=== PATIENT | male | born 1960 | race Caucasian/White ===

== ENCOUNTER → 2019-11-14 | Outpatient (REF) | payer OTHER ==
[~2019-11-14] MED LIST: CALC600T60 PO; FLUO20CA19 PO; LISI10TA4 PO; MULTCAP PO
[2019-11-14 17:49] LABS: HEMATOCRIT 46.8 % (42.0-52.0); HEMOGLOBIN 15.9 g/dl (13.5-17.5); MEAN CORPUSCULAR HEMOGLOBIN 31.3 pg (27.0-33.0); MEAN CORPUSCULAR VOLUME 92.1 fl (80.0-96.0); PLATELET COUNT, AUTOMATED 214 10^3/uL (150-450); RED BLOOD COUNT 5.08 10^6/uL (4.30-6.10); WHITE BLOOD COUNT 6.2 10^3/uL (4.0-10.0)
[2019-11-14 18:10] LABS: ALBUMIN 3.3 GM/DL (3.2-5.2); ALT/SGPT 21 U/L (12-78); BILIRUBIN,TOTAL 0.5 MG/DL (0.2-1.0); BLOOD UREA NITROGEN 13 MG/DL (7-18); CALCIUM LEVEL 9.1 MG/DL (8.8-10.2); CARBON DIOXIDE LEVEL 30 MEQ/L (21-32); CHLORIDE LEVEL 107 MEQ/L (98-107); CREATININE FOR GFR 0.96 MG/DL (0.70-1.30); FREE T4 1.03 NG/DL (0.76-1.46); GLOMERULAR FILTRATION RATE > 60.0 (>49); GLUCOSE, FASTING 97 MG/DL (70-100); POTASSIUM SERUM 4.6 MEQ/L (3.5-5.1); SODIUM LEVEL 143 MEQ/L (136-145); THYROID STIMULATING HORMONE 0.965 uIU/ML (0.358-3.740); TOTAL PROTEIN 6.5 GM/DL (6.4-8.2)
== END ==
LOC: M SFHCADAM 10:53
PROVIDERS: ATTEND Family Medicine
DX: Z12.5 Encounter for screening for malignant neoplasm of prostate (principal); F41.8 Other specified anxiety disorders; I10 Essential (primary) hypertension
CPT/HCPCS: 80053; 84439; 84443; 85027; G0103

== ENCOUNTER 2019-11-17 08:22 | Day surgery (SDC) | payer BC, SELFPAY ==
[~2019-11-17] VITALS: Ht 175.3 cm; Wt 94.7 kg
[~2019-11-17 08:22] MED LIST changes: +NS 1,000 ML IV ONE; +PROPOFOL 200 MG/20 ML VIAL As Ordered ONE
--- NOTE | 2019-11-17 10:23 | ROOR ---
Patient Name: Ilir Sánchez Procedure Date: 11/17/2019 9:36 AM Date of : 1960 Age: 59 Room: [facility] Gender: Male Note Status: Finalized Procedure: Colonoscopy Indications: Screening for colorectal malignant neoplasm Providers: Jeff Howell MD Referring MD: Arturo Gutierrez MD Requesting Provider: Medicines: Monitored Anesthesia Care Complications: No immediate complications. Procedure: Pre-Anesthesia Assessment: - Prior to the procedure, a History and Physical was performed, and patient medications and allergies were reviewed. The patient is competent. The risks and benefits of the procedure and the sedation options and risks were discussed with the patient. All questions were answered and informed consent was obtained. Patient identification and proposed procedure were verified by the physician, the nurse and the anesthesiologist in the procedure room. Mental Status Examination: alert and oriented. Airway Examination: normal oropharyngeal airway and neck mobility. Respiratory Examination: clear to auscultation. CV Examination: normal. Prophylactic Antibiotics: The patient does not require prophylactic antibiotics. Prior Anticoagulants: The patient has taken no previous anticoagulant or antiplatelet agents. ASA Grade Assessment: II - A patient with mild systemic disease. After reviewing the risks and benefits, the patient was deemed in satisfactory condition to undergo the procedure. The anesthesia plan was to use monitored anesthesia care (MAC). Immediately prior to administration of medications, the patient was re-assessed for adequacy to receive sedatives. The heart rate, respiratory rate, oxygen saturations, blood pressure, adequacy of pulmonary ventilation, and response to care were monitored throughout the procedure. The physical status of the patient was re-assessed after the procedure. The Colonoscope was introduced through the anus and advanced to the terminal ileum, with identification of the appendiceal orifice and IC valve. The colonoscopy was performed without difficulty. The patient tolerated the procedure well. The quality of the bowel preparation was fair except the descending colon was poor. The terminal ileum, ileocecal valve, appendiceal orifice, and rectum were photographed. Scope insertion time was 3 minutes. Scope withdrawal time was 11 minutes. The total duration of the procedure was 14 minutes. Findings: The perianal and digital rectal examinations were normal. The terminal ileum appeared normal. Five sessile polyps were found in the transverse colon and cecum. The polyps were 4 to 10 mm in size. These polyps were removed with a cold snare. Resection and retrieval were complete. Verification of patient identification for the specimen was done by the physician and nurse using the patient's name, date and medical record number. Estimated blood loss was minimal. Multiple small and large-mouthed diverticula were found from sigmoid to descending colon. There was no evidence of diverticular bleeding. Non-bleeding external and internal hemorrhoids were found during retroflexion. The hemorrhoids were medium-sized. Impression: - The examined portion of the ileum was normal. - Five 4 to 10 mm polyps in the transverse colon and in the cecum, removed with a cold snare. Resected and retrieved. - Moderate diverticulosis from sigmoid to descending colon. There was no evidence of diverticular bleeding. - Non-bleeding external and internal hemorrhoids. Recommendation: - Patient has a contact number available for emergencies. The signs and symptoms of potential delayed complications were discussed with the patient. Return to normal activities tomorrow. Written discharge instructions were provided to the patient. - High fiber diet. - Continue present medications. - Await pathology results. - Repeat colonoscopy in 1 - 3 years because the bowel preparation was poor and for surveillance based on pathology results. - Telephone GI clinic for pathology results in 2 weeks. - Return to primary care physician. Jeff Howell MD Jeff Howell MD 11/17/2019 10:23:16 AM Electronically signed by Jeff Howell MD Number of Addenda: 0 Note Initiated On: 11/17/2019 9:36 AM Estimated Blood Loss: Estimated blood loss was minimal.
[2019-11-17 10:44] VITALS: BP 174/84
== END 2019-11-17 10:43 | disposition home or self-care (01) ==
LOC: M OPP 08:22
PROVIDERS: ATTEND Internal Medicine Gastroenterology
DX: Z12.11 Encounter for screening for malignant neoplasm of colon (principal); K64.8 Other hemorrhoids; D12.3 Benign neoplasm of transverse colon; D12.0 Benign neoplasm of cecum; K57.30 Diverticulosis of large intestine without perforation or abscess without bleeding; G47.30 Sleep apnea, unspecified; Z79.899 Other long term (current) drug therapy; Z98.84 Bariatric surgery status

== ENCOUNTER → 2019-11-22 | Outpatient (REF) | payer BC ==
[~2019-11-22] MED LIST changes: -NS 1,000 ML IV ONE; -PROPOFOL 200 MG/20 ML VIAL As Ordered ONE
[2019-11-22 13:14] LABS: CHOLESTEROL LEVEL 196 MG/DL (<200); CHOLESTEROL RISK RATIO 3.111 (<5); HDL CHOLESTEROL 63 MG/DL (>40); LDL CHOLESTEROL 106 MG/DL (<100); NON-HDL-C 133 MG/DL; RHEUMATOID FACTOR QUANT < 10.0 IU/ML (<15.0); TRIGLYCERIDES LEVEL 136 MG/DL (<150)
[2019-11-24 00:07] LABS: ANA (HEP2) Negative (.)
== END ==
LOC: M SFHCADAM 08:57
PROVIDERS: ATTEND Family Medicine
DX: E78.5 Hyperlipidemia, unspecified (principal); M15.9 Polyosteoarthritis, unspecified

== ENCOUNTER → 2020-02-01 | Outpatient (CLI) | payer BC ==
[~2020-02-01] MED LIST changes: -FLUO20CA19 PO; +FLUO20CA22 PO; +PROHANCE 279.3MG/ML 15ML VIAL (A9576) As Ordered ONE; +PROHANCE 279.3MG/ML 5ML VIAL (A9576) As Ordered ONE
--- NOTE | 2020-02-01 13:31 | REPVR ---
PROCEDURE INFORMATION: Exam: MR Head Without and With Contrast; Internal Auditory Canals Exam date and time: 02/01/2020 10:51 AM Age: 59 years old Clinical indication: Condition or disease; Other: Hearing loss; Patient HX: Kassy iacs; Additional info: Sensrl hearing loss TECHNIQUE: Imaging protocol: MR of the head without and with intravenous contrast. Exam focused on the internal auditory canals. 3D rendering: MIP and/or 3D reconstructed images were created by the technologist. Contrast material: PROHANCE; Contrast volume: 20 ml; Contrast route: IV; COMPARISON: No relevant prior studies available. FINDINGS: Brain: There is mild patchy increased T2 signal intensity within the bilateral cerebral periventricular white matter, consistent with chronic microvascular ischemic changes. There are few small focal areas of chronic ischemia in bilateral frontal, parietal and periatrial white matter. There is no abnormal diffusion weighted signal intensity to suggest an acute ischemic event. Examination of the posterior fossa demonstrates no significant abnormality. The seventh and eighth nerve complexes are normal in thickness and signal intensity. No discrete mass or abnormal enhancement is seen to suggest vestibular schwannoma or acoustic neuroma. No abnormal contrast enhancement is seen. Ventricles: The ventricular system is not dilated and is appropriate for the patient's age. Mastoid air cells: Unremarkable. No effusions. Internal auditory canals: Unremarkable. 7th and 8th cranial nerves are unremarkable. No abnormal masses. Bones/joints: Unremarkable. IMPRESSION: 1. No acute infarction, masses or hemorrhage is seen. No acute intracranial abnormality is identified. 2. Diffuse age-related cerebral atrophy and mild chronic microvascular white matter ischemic changes, without evidence of an acute intracranial abnormality. 3. The seventh and eighth nerve complexes are normal in thickness and signal intensity. No discrete mass or abnormal enhancement is seen to suggest vestibular schwannoma or acoustic neuroma. 4. No abnormal contrast enhancement is seen. Electronically signed by: Eric Marshall On 02/01/2020 13:31:21 PM
== END ==
LOC: M RAD 09:54
PROVIDERS: ATTEND Specialist
DX: H90.41 Sensorineural hearing loss, unilateral, right ear, with unrestricted hearing on the contralateral side (principal)
CPT/HCPCS: 70543; A9576

== ENCOUNTER → 2020-02-22 | Outpatient (CLI) | payer BC ==
[~2020-02-22] MED LIST changes: -PROHANCE 279.3MG/ML 15ML VIAL (A9576) As Ordered ONE; -PROHANCE 279.3MG/ML 5ML VIAL (A9576) As Ordered ONE
--- NOTE | 2020-02-22 12:17 | REP ---
LUMBAR SPINE: Five views. HISTORY: Low back pain. No comparison study. FINDINGS: There is a mild levoconvex lumbar scoliosis. Psoas margins are symmetric. Sacrum and SI joints are intact. Vertebral body heights are preserved. Alignment is normal. There is diffuse degenerative disc disease. Degenerative disc changes are most pronounced at L4-5 and L5-S1 where there is disc narrowing. Vacuum phenomenon is seen at the L5-S1 level. Discogenic spurring is noted at the other levels. There is no evidence of spondylolysis or spondylolisthesis. Facet hypertrophy and sclerosis are present bilaterally at L5-S1 and to a lesser extent at L4-5 and on the right at L3-4. IMPRESSION: Degenerative spondylosis changes. No acute bony abnormality. Electronically Signed by Osbaldo Haynes MD 02/22/2020 01:52 P
--- NOTE | 2020-02-22 12:19 | REP ---
LEFT HIP: Two views. HISTORY: Hip pain. FINDINGS: AP and frog-leg views of the left hip show a smooth rounded femoral head and intact hip joint space. There is a subcortical cyst at the anterior edge of the femoral neck. Periarticular soft tissues are unremarkable. There is minimal femoral acetabular spurring. IMPRESSION: Minimal spurring. No acute bony abnormality. Electronically Signed by Osbaldo Haynes MD 02/22/2020 01:52 P
== END ==
LOC: M ADAMS 10:49
PROVIDERS: ATTEND Family Medicine
DX: M25.552 Pain in left hip (principal)

== ENCOUNTER → 2020-06-20 | Outpatient (REF) | payer BC ==
[2020-08-26 14:44] LABS: PLATELET COUNT, AUTOMATED 232 10^3/uL (150-450)
[2020-08-26 14:45] LABS: INR 0.98; PARTIAL THROMBOPLASTIN TIME 26.9 SECONDS (24.2-38.5); PROTHROMBIN TIME 13.2 SECONDS (12.5-14.3)
== END ==
LOC: M LABDRWAD 12:04
PROVIDERS: ATTEND Physician Assistant
DX: M51.37 Other intervertebral disc degeneration, lumbosacral region (principal)

== ENCOUNTER → 2020-06-21 | Outpatient (REF) | payer BC ==
[2020-07-20 01:13] LABS: COLLAGEN EPINEPHRINE 122 SECONDS (74-162)
== END ==
LOC: M LABDRWAD 11:34
PROVIDERS: ATTEND Physician Assistant
DX: M51.37 Other intervertebral disc degeneration, lumbosacral region (principal)

== ENCOUNTER → 2020-07-31 | Outpatient (REF) | payer BC ==
[2020-07-31 18:57] LABS: PLATELET COUNT, AUTOMATED 222 10^3/uL (150-450)
[2020-07-31 19:10] LABS: INR 0.98; PARTIAL THROMBOPLASTIN TIME 27.6 SECONDS (25.0-38.4); PROTHROMBIN TIME 13.2 SECONDS (11.8-14.0)
== END ==
LOC: M LABDRWAD 17:46
PROVIDERS: ATTEND Physician Assistant
DX: M51.37 Other intervertebral disc degeneration, lumbosacral region (principal)

== ENCOUNTER → 2020-08-07 | Outpatient (CLI) | payer BC | LOC: M LABSMTC 10:16 | PROVIDERS: ATTEND Physical Medicine & Rehabilitation | DX: Z01.812 Encounter for preprocedural laboratory examination (principal); Z20.828 Contact with and (suspected) exposure to other viral communicable diseases ==

== ENCOUNTER → 2020-10-31 | Outpatient (REF) | payer BC ==
[2020-10-31 17:48] LABS: HEMATOCRIT 48.7 % (42.0-52.0); HEMOGLOBIN 16.3 g/dl (13.5-17.5); MEAN CORPUSCULAR HEMOGLOBIN 30.5 pg (27.0-33.0); MEAN CORPUSCULAR HGB CONC 33.5 g/dl (32.0-36.5); MEAN CORPUSCULAR VOLUME 91.2 fl (80.0-96.0); PLATELET COUNT, AUTOMATED 247 10^3/uL (150-450); RED BLOOD COUNT 5.34 10^6/uL (4.30-6.10); WHITE BLOOD COUNT 6.3 10^3/uL (4.0-10.0)
[2020-10-31 18:03] LABS: ALBUMIN 3.6 GM/DL (3.2-5.2); ALT/SGPT 22 U/L (12-78); BILIRUBIN,TOTAL 0.4 MG/DL (0.2-1.0); BLOOD UREA NITROGEN 18 MG/DL (7-18); CALCIUM LEVEL 9.1 MG/DL (8.8-10.2); CARBON DIOXIDE LEVEL 34 MEQ/L (21-32); CHLORIDE LEVEL 102 MEQ/L (98-107); CHOLESTEROL LEVEL 217 MG/DL (<200); CREATININE FOR GFR 0.98 MG/DL (0.70-1.30); FREE T4 1.01 NG/DL (0.76-1.46); GLOMERULAR FILTRATION RATE > 60.0 (>49); GLUCOSE, FASTING 93 MG/DL (70-100); HDL CHOLESTEROL 62 MG/DL (>40); LDL CHOLESTEROL 122 MG/DL (<100); NON-HDL-C 155 MG/DL; POTASSIUM SERUM 4.2 MEQ/L (3.5-5.1); SODIUM LEVEL 141 MEQ/L (136-145); THYROID STIMULATING HORMONE 0.765 uIU/ML (0.358-3.740); TOTAL PROTEIN 6.5 GM/DL (6.4-8.2); TRIGLYCERIDES LEVEL 163 MG/DL (<150)
== END ==
LOC: M SFHCADAM 14:52
PROVIDERS: ATTEND Family Medicine
DX: I10 Essential (primary) hypertension (principal); E78.5 Hyperlipidemia, unspecified; F41.8 Other specified anxiety disorders; Z86.010 Personal history of colon polyps; Z12.5 Encounter for screening for malignant neoplasm of prostate

== ENCOUNTER → 2020-12-28 | Outpatient (CLI) | payer BC ==
[~2020-12-28] MED LIST changes: +CENT1TAB PO; +CLON0.5T2 PO; +LISI10TA22 PO; -LISI10TA4 PO; +NEUR300C PO
== END ==
LOC: M LABSMTC 09:57
PROVIDERS: ATTEND Anesthesiology
DX: Z01.812 Encounter for preprocedural laboratory examination (principal); Z20.822 Contact with and (suspected) exposure to COVID-19

== ENCOUNTER 2021-01-02 07:58 | Day surgery (SDC) | payer BC ==
[~2021-01-02] VITALS: Ht 175.3 cm; Wt 96.2 kg
[~2021-01-02 07:58] MED LIST changes: +NS 1,000 ML IV ONE
--- OUTSIDE RECORDS SUMMARY | 2021-01-02 08:02 | CCD ---
Author Author [facility] Organization [facility] [facility] Address Unknown Phone Unavailable Care Team Providers Care Police [employer] Program Coordinator Name Role Phone Arturo Gutierrez Unavailable PROBLEMS Type Condition ICD9-CM Code [id number] Code Onset Dates Condition S tatus SNOMED Code Notes Problem Depression with anxiety F41.8 Active 54773099 6 Problem Generalized osteoarthrosis, involving multiple sites M15.9 Active 501723539 Problem Other chronic pain G89.29 Active 21688431 Problem Unspecified essential hypertension I10 Activ e 58425606 Problem Erectile disorder, generalized, mild F52.21 Act joshua 105427450 Problem History of adenomatous polyp of colon Z86.010 Ac tive 786657750 Problem Borderline hyperlipidemia E78.5 Active 200793 04 ALLERGIES No Known Allergies ENCOUNTERS from 1960 to 2020-11-12 Encounter Location Date Provider Diagnosis [address] [place] [address] 17 Oct, 2020 Byron Gutierrez Unspecified essential hypertension I10 ; Low back pain M54.5 ; Depression with anxiety F41.8 ; Erectile disorder, generalized, mild F52.21 ; Borderline hyperlipidemia E78.5 ; History of adenomatous polyp of colon Z86.010 ; Generalized osteoarthrosis, involving multiple sites M15.9 and Encounter for screening for malignant neoplasm of prostate Z12.5 IMMUNIZATIONS Vaccine Route Administration Date Status Influenza (18 yrs & older) Flublok IM Intramuscular Nov 22, 2019 Administered TDAP 0.5mL (Boostrix) IM Intramuscular May 25, 2019 Administe red SOCIAL HISTORY Tobacco Use: Social History Observation Description Date Details (start date - stop date) Never Smoker Sex Assigned At : Social History Observation Description Sex Assigned At Unknown Audit Question Answer Notes Total Score: 2 Interpretation: Alcohol Education Gnosticist: Question Answer Notes Gnosticist No tenriism beliefs that would impact health care. Drug and Alcohol Question Answer Notes Total Score: 0 Interpretation: No problems reported Tobacco Use: Question Answer Notes Are you a: never smoker REASON FOR REFERRAL No Information VITAL SIGNS No information MEDICATIONS Medication SIG (Take, Route, Frequency, Duration) Notes Start Da te End Date Status Multivital Active FLUoxetine HCl 20 MG 1 capsule Orally Once a day Active Sildenafil Citrate 100 MG 1 tablet as needed Orally Once a day f or 90 day(s) Not-Taking Calcium 600 MG 1 tablet with meals Orally Twice a day for 90 day(s) Active Meloxicam 15 MG 1 tablet Orally once daily as needed for 30 day( s) Nov, Active Clonazepam 0.5MG 1 tablet as needed for anxiety Orally Daily for 30 Active Lisinopril 10 MG 1 tablet Orally Once a day Active PROCEDURES No Information RESULTS REASON FOR VISIT Dec F/U MEDICAL (GENERAL) HISTORY Type Description Date Medical History HTN Medical History ED Medical History depression/anxiety--manifest s as vague chest pain--had stress tests etc in [place] ~ 2012 Medical History s/p sleeve gastrectomy-- lost 80#, regai rachel ~ 20# Medical History adenomatous colon polyps 11/2019 Medical History DDD L/S spine, L5-S1 radicul opathy non NCS/EMG at [facility] [place]; s/p epidurals NCPG 08/04 Surgical History gastric sleeve surgery for weight loss 1 12/01 Surgical History hernia Surgical History TURP (in [place]) 2016 Surgical History colonoscopy--adenomatous polyps 11/2019 Goals Section No Information Health Concerns No Information MEDICAL EQUIPMENT No Information MENTAL STATUS No Information FUNCTIONAL STATUS No Information ASSESSMENTS Encounter Date Diagnosis Assessment Notes Treatment Notes Treatm ent Clinical Notes Oct, Unspecified essential hypertension (ICD-10 - I10 ) Oct, Low back pain (ICD-10 - M54.5) Oct, Depression with anxiety (ICD-10 - F41.8) Oct, Erectile disorder, generalized, mild (ICD-10 - F 52.21) Oct, Borderline hyperlipidemia (ICD-10 - E78.5) Oct, History of adenomatous polyp of colon (ICD-10 - Z86.010) [email or web address] Oct, Generalized osteoarthrosis, involving multiple sites (ICD-10 - M15.9) 17 Oct, 2020 Encounter for screening for malignant neoplasm of prostate (ICD-10 - Z12.5) PLAN OF TREATMENT Treatment Notes Assessment Notes Clinical Notes History of adenomatous polyp of colon [email or web address] Next Appt Details 6 Months Reason: Insurance Providers Payer Name Payer Address Payer Phone Insured Name Patient Relati onship to Insured Coverage Start Date Coverage End Date [employer] BC[employer] PPO [id number] [id number] [place] self
--- OUTSIDE RECORDS SUMMARY | 2021-01-02 08:02 | CCD ---
Author Author [facility] Organization [facility] Address Unknown Phone Unavailable Care Team Providers Care Credit Collection Specialist Name Role Phone FitzgeraldRadhaCelina Unavailable PROBLEMS Type Condition ICD9-CM Code [id number] Code Onset Dates Condition S tatus W/U Status Risk SNOMED Code Notes Problem Depression with anxiety F41.8 Active confirmed 865798386 Problem Unspecified essential hypertension I10 Active co nfirmed 49880402 Problem Other chronic pain G89.29 Active confirmed 8 5393210 Problem Adjustment disorder with mixed anxiety and depressed mood F43.23 Active confirmed 245404068 Problem Erectile disorder, generalized, mild F52.21 Act joshua confirmed 040430726 Problem History of adenomatous polyp of colon Z86.010 Ac tive confirmed 618697186 Problem Borderline hyperlipidemia E78.5 Active confirmed 45597783 Problem Generalized osteoarthrosis, involving multiple sites M15.9 Active confirmed 572020054 ALLERGIES No Known Allergies ENCOUNTERS from 1960 to 2020-12-27 Encounter Location Date Provider Diagnosis [facility] [address] [place] [address] 10 Dec Celina Fitzgerald Adjustment disorder with mixed anxiety a nd depressed mood F43.23 IMMUNIZATIONS Vaccine Route Administration Date Status Influenza [...] Notes Total Score: 2 Interpretation: Alcohol Education Christian: Question Answer Notes Christian No sikhism beliefs that would impact health care. Drug and Alcohol Question Answer Notes Total Score: 0 Interpretation: No problems reported Tobacco Use: Question Answer Notes Are you a: never smoker REASON FOR REFERRAL No Information VITAL SIGNS No information MEDICATIONS Medication SIG (Take, Route, Frequency, Duration) Notes Start Da te End Date Status Meloxicam 15 MG 1 tablet Orally once daily as needed for 30 day( s) Nov, Active FLUoxetine HCl 20 MG 1 capsule Orally Once a day Active Sildenafil Citrate 100 MG 1 tablet as needed Orally Once a day f or 90 day(s) Not-Taking Multivital Active Clonazepam 0.5MG 1 tablet as needed for anxiety Orally Daily for 30 Active Calcium 600 MG 1 tablet with meals Orally Twice a day for 90 day(s) Active Lisinopril 10 MG 1 tablet Orally Once a day Active PROCEDURES No Information RESULTS No Results REASON FOR VISIT follow up MEDICAL (GENERAL) HISTORY Type Description Date Medical History HTN Medical History ED Medical History depression/anxiety--manifest s as vague chest pain--had stress tests etc in 2012 Medical History s/p sleeve gastrectomy-- lost 80#, regai rachel ~ 20# Medical History adenomatous colon polyps 11/2019 Medical History DDD L/S spine, L5-S1 radicul opathy non NCS/EMG at [facility] [place]; s/p epidurals NCPG 08/04 Surgical History gastric sleeve surgery for weight loss 1 12/01 Surgical History hernia Surgical History TURP (in [place]) 2016 Surgical History colonoscopy--adenomatous polyps 11/2019 Goals Section No Information Health Concerns No Information MEDICAL EQUIPMENT No Information MENTAL STATUS No Information FUNCTIONAL STATUS No Information ASSESSMENTS Encounter Date Diagnosis Assessment Notes Treatment Notes Treatm ent Clinical Notes Dec, Adjustment disorder with mix ed anxiety and depressed mood (ICD-10 - F43.23) Johnny was seen for a follow up session. Reports symptoms have remained the same. Scheduled for a return session 01/16/2021. PLAN OF TREATMENT Medication Medication Name Sig Start Date Stop Date Clonazepam 0.5MG 1 tablet as needed for anxiety Orally Daily for 30 Treatment Notes Assessment Notes Clinical Notes Adjustment disorder with mixed anxiety and depressed mood Johnny was seen for a follow up session. Reports symptoms have remained the same. Scheduled for a return session 01/16/2021. Next Appt Details Provider Name:Celina Fitzgerald, 2021-01 -04 10:00:00 AM, [address], [place], [address] Insurance Providers Payer Name Payer Address Payer Phone Insured Name Patient Relati onship to Insured Coverage Start Date Coverage End Date RET[employer] BS PPO [phone] [address] [place]ABEL self
--- OUTSIDE RECORDS SUMMARY | 2021-01-02 08:02 | CCD ---
Author Author [facility] Organization [facility] Address Unknown Phone Unavailable Care Team Providers Care Dry Yard Worker Name Role Phone Chris Fitzgeralde Unavailable PROBLEMS Type Condition ICD9-CM Code [id number] Code Onset Dates Condition S tatus SNOMED Code Notes Problem Depression with anxiety F41.8 Active 79024365 6 Problem Unspecified essential hypertension I10 Activ e 62450419 Problem Other chronic pain G89.29 Active 08960083 Problem Adjustment disorder with mixed anxiety and depressed mood F43.23 Active 317597549 Problem Erectile disorder, generalized, mild F52.21 Act joshua 827639614 Problem History of adenomatous polyp of colon Z86.010 Ac tive 686291242 Problem Borderline hyperlipidemia E78.5 Active 569653 04 Problem Generalized osteoarthrosis, involving multiple sites M15.9 Active 852943689 ALLERGIES No Known Allergies ENCOUNTERS from 1960 to 2020-12-08 Encounter Location Date Provider Diagnosis [id number] [place] [address] Nov Celina Fitzgerald Adjustment disorder with mixed anxiety [...] Notes Total Score: 2 Interpretation: Alcohol Education Mandaeism: Question Answer Notes Mandaeism No sikhism beliefs that would impact health [...] Information RESULTS No Results REASON FOR VISIT intake wants in person MEDICAL (GENERAL) HISTORY Type Description Date Medical History HTN Medical History ED Medical History depression/anxiety--manifest s as vague chest pain--had stress tests etc in [place] ~ 2012 Medical History s/p sleeve gastrectomy-- lost 80#, regai rachel ~ 20# Medical History adenomatous colon polyps 11/2019 Medical History DDD L/S spine, L5-S1 radicul opathy non [place]CS[place] [facility] [place]; s/p epidurals NCPG 08/04 Surgical History gastric sleeve surgery for weight loss 1 12/01 Surgical History hernia Surgical History TURP (in [place]) 2017 Surgical History colonoscopy--adenomatous polyps 11/2019 Goals Section No Information Health Concerns No Information MEDICAL EQUIPMENT No Information MENTAL STATUS No Information FUNCTIONAL STATUS No Information ASSESSMENTS Encounter Date Diagnosis Assessment Notes Treatment Notes Treatm ent Clinical Notes Nov, Adjustment disorder with mix ed anxiety and depressed mood (ICD-10 - F43.23) Johnny was seen for an initial intake session. Intake complete. Scheduled for a return 12/25/2020 PLAN OF TREATMENT Medication Medication Name Sig Start Date Stop Date Clonazepam 0.5MG 1 tablet as needed for anxiety Orally Daily for 30 Treatment Notes Assessment Notes Clinical Notes Adjustment disorder with mixed anxiety and depressed mood Johnny was seen for an initial intake session. Intake complete. Scheduled for a return 12/25/2020 Next Appt Details Provider Name:Celina Fitzgerald, 2020-12 11:00:00 AM, [address] [place], [address] Insurance Providers Payer Name Payer Address Payer Phone Insured Name Patient Relati onship to Insured Coverage Start Date Coverage End Date [employer] PPO [id number] [id number] [place] ISABEL self
--- OUTSIDE RECORDS SUMMARY | 2021-01-02 08:02 | CCD ---
Author Author [facility] Organization [facility] Address Unknown Phone Unavailable Care Team Providers Care Log Yard Manager Name Role Phone MCELHERHERSON, JUSTEN PA Unavailable Unavailable MCELHERAN, JUSTEN PA Unavailable Unavailable MCELHERAN, JUSTEN PA Unavailable Unavailable MCELHERAN, JUSTEN PA Unavailable Unavailable MCELHERAN, JUSTEN PA Unavailable Unavailable MCELHERAN, JUSTEN PA Unavailable Unavailable MCELHERAN, JUSTEN PA Unavailable Unavailable MCELHERAN, JUSTEN PA Unavailable Unavailable MCELHERAN, JUSTEN PA Unavailable Unavailable MCELHERAN, JUSTEN PA Unavailable Unavailable MCELHERAN, JUSTEN PA Unavailable Unavailable MCELHERAN, JUSTEN PA Unavailable Unavailable MCELHERAN, JUSTEN PA Unavailable Unavailable MCELHERAN, JUSTEN PA Unavailable Unavailable MCELHERAN, JUSTEN PA Unavailable Unavailable MCELHERAN, JUSTEN PA Unavailable Unavailable MCELHERAN, JUSTEN PA Unavailable Unavailable MCELHERAN, JUSTEN PA Unavailable Unavailable MCELHERAN, JUSTEN PA Unavailable Unavailable MCELHERAN, JUSTEN PA Unavailable Unavailable MCELHERAN, JUSTEN PA Unavailable Unavailable MCELHERAN, JUSTEN PA Unavailable Unavailable MCELHERAN, JUSTEN PA Unavailable Unavailable MCELHERAN, JUSTEN PA Unavailable Unavailable MCELHERAN, JUSTEN PA Unavailable Unavailable MCELHERAN, JUSTEN PA Unavailable Unavailable MCELHERAN, JUSTEN PA Unavailable Unavailable MCELHERAN, JUSTEN PA Unavailable Unavailable Gia Shah MD Unavailable Unavailable Gia Shah MD Unavailable Unavailable Gia Shah MD Unavailable Unavailable Gia Shah MD Unavailable Unavailable Gia Shah MD Unavailable Unavailable Gia Shah MD Unavailable Unavailable Gia Shah MD Unavailable Unavailable Mollison, Gia Miles MD Unavailable Unavailable Mollison, Gia Miles MD Unavailable Unavailable Mollison, Gia Miles MD Unavailable Unavailable Mollison, Gia Miles MD Unavailable Unavailable Mollison, Gia Miles MD Unavailable Unavailable Mollison, Gia Miles MD Unavailable Unavailable Mollison, Gia Miles MD Unavailable Unavailable Mollison, Gia Miles MD Unavailable Unavailable Mollison, Gia Miles MD Unavailable Unavailable Mollison, Gia Miles MD Unavailable Unavailable Mollison, Gia Miles MD Unavailable Unavailable Mollison, Gia Miles MD Unavailable Unavailable Mollison, Gia Miles MD Unavailable Unavailable Mollison, Gia Miles MD Unavailable Unavailable Mollison, Gia Miles MD Unavailable Unavailable Mollison, Gia Miles MD Unavailable Unavailable Mollison, Gia Miles MD Unavailable Unavailable Mollison, Gia Miles MD Unavailable Unavailable Abriss, Lawrence Richard MD Unavailable Unavailable Abriss, Lawrence Richard MD Unavailable Unavailable Abriss, Lawrence Richard MD Unavailable Unavailable Abriss, Lawrence Richard MD Unavailable Unavailable Abriss, Lawrence Richard MD Unavailable Unavailable Abriss, Lawrence Richard MD Unavailable Unavailable Abriss, Lawrence Richard MD Unavailable Unavailable Abriss, Lawrence Richard MD Unavailable Unavailable Abriss, Lawrence Richard MD Unavailable Unavailable Abriss, Lawrence Richard MD Unavailable Unavailable Abriss, Lawrence Richard MD Unavailable Unavailable Abriss, Lawrence Richard MD Unavailable Unavailable Abriss, Lawrence Richard MD Unavailable Unavailable Abriss, Lawrence Richard MD Unavailable Unavailable Abriss, Lawrence Richard MD Unavailable Unavailable Abriss, Lawrence Richard MD Unavailable Unavailable Abriss, Lawrence Richard MD Unavailable Unavailable Abriss, Lawrence Richard MD Unavailable Unavailable Jauregui, Aidan Unavailable Unavailable Jauregui, Aidan Unavailable Unavailable Jauregui, Aidan Unavailable Unavailable Jauregui, Aidan Unavailable Unavailable Jauregui, Aidan Unavailable Unavailable Jauregui, Aidan Unavailable Unavailable Jauregui, Aidan Unavailable Unavailable Jauregui, Aidan Unavailable Unavailable Jauregui, Aidan Unavailable Unavailable Jauregui, Aidan Unavailable Unavailable Jauregui, Aidan Unavailable Unavailable Jauregui, Aidan Unavailable Unavailable Jauregui, Aidan Unavailable Unavailable Jauregui, Aidan Unavailable Unavailable Jauregui, Aidan Unavailable Unavailable Jauregui, Aidan Unavailable Unavailable Jauregui, Aidan Unavailable Unavailable Jauregui, Aidan Unavailable Unavailable Jauregui, Aidan Unavailable Unavailable Jauregui, Aidan Unavailable Unavailable Jauregui, Aidan Unavailable Unavailable Jauregui, Aidan Unavailable Unavailable Jauregui, Aidan Unavailable Unavailable Jauregui, Aidan Unavailable Unavailable Jauregui, Aidan Unavailable Unavailable Jauregui, Aidan Unavailable Unavailable Jauregui, Aidan Unavailable Unavailable Jauregui, Aidan Unavailable Unavailable Jauregui, Aidan Unavailable Unavailable Jauregui, Aidan Unavailable Unavailable Jauregui, Aidan Unavailable Unavailable Jauregui, Aidan Unavailable Unavailable Jauregui, Aidan Unavailable Unavailable Jauregui, Aidan Unavailable Unavailable Jauregui, Aidan Unavailable Unavailable Jauregui, Aidan Unavailable Unavailable Jauregui, Aidan Unavailable Unavailable Jauregui, Aidan Unavailable Unavailable Jauregui, Aidan Unavailable Unavailable Jauregui, Aidan Unavailable Unavailable Jauregui, Aidan Unavailable Unavailable Jauregui, Aidan Unavailable Unavailable Jauregui, Aidan Unavailable Unavailable Jauregui, Aidan Unavailable Unavailable KEYSHAWN, M SINGH PA Unavailable Unavailable KEYSHAWN, M SINGH PA Unavailable Unavailable KEYSHAWN, M SINGH PA Unavailable Unavailable KEYSHAWN, M SINGH PA Unavailable Unavailable KEYSHAWN, M SINGH PA Unavailable Unavailable KEYSHAWN, M SINGH PA Unavailable Unavailable KEYSHAWN, M SINGH PA Unavailable Unavailable KEYSHAWN, M SINGH PA Unavailable Unavailable KEYSHAWN, M SINGH PA Unavailable Unavailable KEYSHAWN, M SINGH PA Unavailable Unavailable KEYSHAWN, M SINGH PA Unavailable Unavailable KEYSHAWN, M SINGH PA Unavailable Unavailable KEYSHAWN, M SINGH PA Unavailable Unavailable KEYSHAWN, M SINGH PA Unavailable Unavailable KEYSHAWN, M SINGH PA Unavailable Unavailable KEYSHAWN, M SINGH PA Unavailable Unavailable KEYSHAWN, M SINGH PA Unavailable Unavailable KEYSHAWN, M SINGH PA Unavailable Unavailable KEYSHAWN, M SINGH PA Unavailable Unavailable KEYSHAWN, M SINGH PA Unavailable Unavailable KEYSHAWN, M SINGH PA Unavailable Unavailable KEYSHAWN, M SINGH PA Unavailable Unavailable KEYSHAWN, M SINGH PA Unavailable Unavailable KEYSHAWN, M SINGH PA Unavailable Unavailable Re-disclosure Warning The records that you are about to access may contain information from federally-assisted alcohol or drug abuse programs. If such information is present, then the following federally mandated warning applies: This information has been disclosed to you from records protected by federal confidentiality rules (42 CFR part 2). The federal rules prohibit you from making any further disclosure of this information unless further disclosure is expressly permitted by the written consent of the person to whom it pertains or as otherwise permitted by 42 CFR part 2. A general authorization for the release of medical or other information is NOT sufficient for this purpose. The Federal rules restrict any use of the information to criminally investigate or prosecute any alcohol or drug abuse patient.The records that you are about to access may contain highly sensitive health information, the redisclosure of which is protected by Article 27-F of the [facility] Public Health law. If you continue you may have access to information: Regarding HIV / AIDS; Provided by facilities licensed or operated by the [facility] Office of Mental Health; or Provided by the [facility] Office for People With Developmental Disabilities. If such information is present, then the following [facility] mandated warning applies: This information has been disclosed to you from confidential records which are protected by state law. State law prohibits you from making any further disclosure of this information without the specific written consent of the person to whom it pertains, or as otherwise permitted by law. Any unauthorized further disclosure in violation of state law may result in a fine or correction sentence or both. A general authorization for the release of medical or other information is NOT sufficient authorization for further disc losure. Encounters Encounter Providers Location Date Indications Data Source(s ) ([facility]) [facility] Scheduled Visit [address] [place] [address] 12/25/2020 12:00:00 AM EST eCW1 ([facility]) Outpatient [address] [facility] [address] 12/05/2020 12:00:00 AM EST eCW1 ([facility]) Unknown [address] [facility] [address] 12/03/2020 12:00:00 AM EST eCW1 ([facility]) TeleMedicine Est. Pt. Level 3 [address] [place] [address] 10/31/2020 12:00:00 AM EST eCW1 ([facility]) Unknown [address] [facility] [address] 10/02/2020 12:00:00 AM EST eCW1 ([facility]) Outpatient Attender: SINGH SOLORZANO Physical Therapy 08/15 09:15:00 AM EDT [facility] ([facility]) [facility] [place] [address] [facility] [address] 06/20/2020 12:00:00 AM EDT eCW1 ([facility]) Outpatient Attender: SINGH SOLORZANO Physical Therapy 03/2020 10:30:00 AM EDT [facility] ([facility]) Outpatient Attender: JUSTEN SOLORZANO Physical Therapy 06/13/2020 03:00:00 PM EDT [facility] ([facility]) Unknown [address] [facility] [address] 05/29/2020 12:00:00 AM EDT eCW1 ([facility]) Outpatient 05/14/2020 03:00:00 PM EDT [facility] Outpatient 05/14/2020 03:00:00 PM EDT [facility] Outpatient Attender: JUSTEN SOLORZANO Physical Therapy 05/01/2020 11:00:00 AM EDT [facility] ([facility]) [facility] [place] [address] [facility] [address] 04/05/2020 12:00:00 AM EDT eCW1 ([facility]) OFFICE OUTPATIENT NEW 30 MINUTES Attender: Aidan Jauregui Physical Therapy 03/27/2020 09:00:00 AM EDT [facility] ([facility]) Outpatient Attender: Jd Delvalle/Maribel/Christian/Re indl 02/28/2020 09:00:00 AM EDT [facility] ([facility]) [facility] [place] [address] [place] [address], [place] [address] 02/22/2020 12:00:00 AM EDT eCW1 ([facility]) [facility] [place] [facility] [address] 02/22/2020 12:00:00 AM EDT eCW1 ([facility]) Outpatient Attender: Jose Manuel Delvalle/Maribel/Christian/Re indl 02/08/2020 02:00:00 PM EDT [facility] ([facility] [place] [address] [facility] [address] 02/01/2020 12:00:00 AM EDT eCW1 ([facility]) [facility] [place] [facility] [address] 12/15/2019 12:00:00 AM EST eCW1 ([facility]) [facility] [place] [facility] [address] 11/22/2019 12:00:00 AM EST eCW1 ([facility]) Immunizations Vaccine Date Status Description Data Source(s) INFLUENZA VIRUS VACCINE QUADRIVAL [id number](6 MOS AND UP)/PF 07/24/2020 12:00:00 AM EDT completed [facility] VARICELLA-ZOSTER VIRUS GLYCOPROTEIN E,REC/AS01B ADJUVA NT/PF 12/10/2019 12:00:00 AM EST completed [facility] influenza, recombinant, quadrIvalent,injectable, prese rvative free 11/22/2019 02:56:00 PM EST completed eCW1 ([facility]) influenza, recombinant, quadrIvalent,injectable, prese rvative free 11/22/2019 02:56:00 PM EST completed eCW1 ([facility]) influenza, recombinant, quadrIvalent,injectable, prese rvative free 11/22/2019 02:56:00 PM EST completed eCW1 ([facility]) influenza, recombinant, quadrIvalent,injectable, prese rvative free 11/22/2019 02:56:00 PM EST completed eCW1 ([facility]) influenza, recombinant, quadrIvalent,injectable, prese rvative free 11/22/2019 02:56:00 PM EST completed eCW1 ([facility]) influenza, recombinant, quadrIvalent,injectable, prese rvative free 11/22/2019 02:56:00 PM EST completed eCW1 ([facility]) influenza, recombinant, quadrIvalent,injectable, prese rvative free 11/22/2019 02:56:00 PM EST completed eCW1 ([facility]) Medications Medication Brand Name Start Date Product Form Dose Route Admi nistrative Instructions Pharmacy Instructions Status Indications Reaction Description Data Source(s) Bisacodyl 5 MG Delayed Release Oral Tablet [Dulcolax] Dulcol ax 12/04/2020 12:00:00 AM EST ORAL active M EDENT ([facility], ) POLYETHYLENE GLYCOL 3350 142 MG/ML Oral Solution [Miralax] M iralax 12/04/2020 12:00:00 AM EST active M [facility]ENT ([facility], ) Clenpiq Clenpiq 12/04/2020 12:00:00 AM EST active [facility] ([facility], ) gabapentin 400 MG Oral Capsule Gabapentin 06/19/2020 12:00:00 AM EDT ORAL active [facility] ([facility]) gabapentin 300 MG Oral Capsule Gabapentin 05/01/2020 12:00:00 AM EDT ORAL completed [facility] ([facility]) meloxicam 15 MG Oral Tablet Meloxicam 15 MG Meloxicam 15 MG 11/22/2019 12:00:00 AM EST 1.0 {tablet} active Meloxicam 1 5 MG eCW1 ([facility]) meloxicam 15 MG Oral Tablet Meloxicam 15 MG Meloxicam 15 MG 11/22/2019 12:00:00 AM EST 1.0 {tablet} active Meloxicam 1 5 MG eCW1 ([facility]) meloxicam 15 MG Oral Tablet Meloxicam 15 MG Meloxicam 15 MG 11/22/2019 12:00:00 AM EST active 1 tablet eCW1 ([facility]) meloxicam 15 MG Oral Tablet Meloxicam 15 MG Meloxicam 15 MG 11/22/2019 12:00:00 AM EST 1.0 {tablet} active Meloxicam 1 5 MG eCW1 ([facility]) meloxicam 15 MG Oral Tablet Meloxicam 15 MG Meloxicam 15 MG 11/22/2019 12:00:00 AM EST 1.0 {tablet} active Meloxicam 1 5 MG eCW1 ([facility]) meloxicam 15 MG Oral Tablet Meloxicam 15 MG Meloxicam 15 MG 11/22/2019 12:00:00 AM EST active 1 tablet eCW1 ([facility]) meloxicam 15 MG Oral Tablet Meloxicam 15 MG Meloxicam 15 MG 11/22/2019 12:00:00 AM EST 1.0 {tablet} active Meloxicam 1 5 MG eCW1 ([facility]) meloxicam 15 MG Oral Tablet Meloxicam 15 MG Meloxicam 15 MG 11/22/2019 12:00:00 AM EST 1.0 {tablet} active Meloxicam 1 5 MG eCW1 ([facility]) Insurance Providers Payer name Policy type / Coverage type Policy ID Covered constitution party ID Covered constitution party's relationship to hernandez Policy Hernandez Plan Information [facility] [id number] SP [id number] [facility] [id number] SP [id number] [employer] PPO [id number] SP [id number] [employer] B [id number] S YNC [id number] O UNAVAILABLE UNAVAILA BLE [employer]-BS PPO [id number] SP [id number] SELF PAY ONLY [id number] SP [id number] BCBS ACE HMO [id number] SP [id number] [facility] AMANDA [id number] SP [id number] SP [id number] ANSI-Commercial [id number] ANSI-Commercial [id number] Problems, Conditions, and Diagnoses Code Display Name Description Problem Type Effective Dates Data Source(s) F43.23 [id number] Adjustment disorder with mixed a nxiety and depressed mood Problem 12/06/2020 12:00:00 AM EST eCW1 ([facility]) [id number] Essential hypertension Essential hypertension Problem 03/27/2020 12:00:00 AM EDT [facility] ([facility]) G89.29 [id number] Other chronic pain Problem 02/22/2020 12:00: 00 AM EDT eCW1 ([facility]) G89.29 [id number] Other chronic pain Problem 02/22/2020 12:00: 00 AM EDT eCW1 ([facility]) M15.9 [id number] Generalized osteoarthrosis, involving mul tiple sites Problem 11/22/2019 12:00:00 AM EST eCW1 ([facility]) E78.5 [id number] Borderline hyperlipidemia Problem 11/22/2019 12:00:00 AM EST eCW1 ([facility]) Z86.010 [id number] History of adenomatous polyp of colon Pro blem 11/22/2019 12:00:00 AM EST eCW1 ([facility]) E78.5 [id number] Borderline hyperlipidemia Problem 11/22/2019 12:00:00 AM EST eCW1 ([facility]) Z86.010 [id number] History of adenomatous polyp of colon Pro blem 11/22/2019 12:00:00 AM EST eCW1 ([facility]) M15.9 [id number] Generalized osteoarthrosis, involving mul tiple sites Problem 11/22/2019 12:00:00 AM EST eCW1 ([facility]) Surgeries/Procedures Procedure Description Date Indications Data Source(s) Injec Anesthetic Agent/Steroid Trans Epidural Lumb/Sacral Si ngle 08/12/2020 12:00:00 AM EDT [facility] ([facility]) Injec Anesthetic Agent/Steroid Trans Epidural Lumb/Sacral Ea Addl 08/12/2020 12:00:00 AM EDT [facility] ([facility]) Epidurography Radiological Supervision & Interpretation 08/12/2020 12:00:00 AM EDT [facility] ([facility]) Needle electromyography, each extremity, with related paraspinal areas, when performed, done with nerve conduction, amplitude and latency/velocity study; complete, five or more muscles studied, innervated by three or more nerves or four or more spinal levels (list separately in addition to the code for primary procedure). 03/27/2020 12:00:00 AM EDT MEDEN T ([facility]) [address] Nerve conduction studies 5-6 studies NEW 201203/27/2020 12:00:00 AM EDT [facility] ([facility]) RIV4 VACC RECOMBINANT DNA IM 11/22/2019 12:00:00 AM ES T eCW1 ([facility]) IMMUNIZATION ADMIN 11/22/2019 12:00:00 AM EST eCW1 ([facility]) Colonoscopy W/ Poly 11/17/2019 12:00:00 AM EST [facility] ([facility]) Results ID Date Data Source [id number] 12/28/2020 11:00:00 AM EST [facility] Name Value Range Interpretation Code Description Data Melissa rce(s) Supporting Document(s) SARS coronavirus 2 RNA Not Detected [facility] This lab was ordered by [facility] and reported by [facility]. ID Date Data Source LIPID PANEL (CARDIAC RISK) 10/31/2020 12:00:00 AM EST eCW1 ( [facility]) Name Value Range Interpretation Code Description Data Melissa rce(s) Supporting Document(s) 155 NON-HDL-C eCW1 ([facility]) Triglyceride [Mass/volume] in Serum or Plasma by calculation 163 <150 TRIGLYCERIDES LEVEL eCW1 ([facility]) Cholesterol in HDL [Moles/volume] in Serum or Plasma 62 >40 HDL CHOLESTEROL eCW1 ([facility]) Cholesterol in LDL [Mass/volume] in Serum or Plasma by calculation 122 <100 LDL CHOLESTEROL eCW1 ([facility]) Cholesterol [Moles/volume] in Serum or Plasma 217 <200 CHOLESTEROL LEVEL eCW1 ([facility]) 3.500 <5 CHOLESTEROL RISK RATIO eCW1 ([facility]) ID Date Data Source PSA SCREENING 10/31/2020 12:00:00 AM EST eCW1 ([facility]) Name Value Range Interpretation Code Description Data Melissa rce(s) Supporting Document(s) 2.37 < 4.00 eCW1 ([facility]) ID Date Data Source FREE T4 & TSH PANEL 10/31/2020 12:00:00 AM EST eCW1 ([facility]) Name Value Range Interpretation Code Description Data Melissa rce(s) Supporting Document(s) 0.765 0.358-3.740 eCW1 ([facility]) 1.01 0.76-1.46 eCW1 ([facility]) ID Date Data Source Comprehensive Metabolic Profile (CMP) 10/31/2020 12:00:00 AM EST eCW1 ([facility]) Name Value Range Interpretation Code Description Data Melissa rce(s) Supporting Document(s) 18 7-18 eCW1 ([facility]) 93 70-100 eCW1 ([facility]) 0.98 0.70-1.30 eCW1 ([facility]) 141 136-145 eCW1 ([facility]) 4.2 3.5-5.1 eCW1 ([facility]) 102 98-107 eCW1 ([facility]) > 60.0 >49 eCW1 ([facility]) 34 21-32 eCW1 ([facility]) 19 7-37 eCW1 ([facility]) 22 12-78 eCW1 ([facility]) 9.1 8.8-10.2 eCW1 ([facility]) 0.4 0.2-1.0 eCW1 ([facility]) 80 45-117 eCW1 ([facility]) 6.5 6.4-8.2 eCW1 ([facility]) 1.2 eCW1 ([facility]) 3.6 3.2-5.2 eCW1 ([facility]) ID Date Data Source CBC - Complete Blood Count 10/31/2020 12:00:00 AM EST eCW1 ( [facility]) Name Value Range Interpretation Code Description Data Melissa rce(s) Supporting Document(s) 6.3 4.0-10.0 eCW1 ([facility]) 5.34 4.30-6.10 eCW1 ([facility]) 16.3 13.5-17.5 eCW1 ([facility]) 91.2 80.0-96.0 eCW1 ([facility]) 48.7 42.0-52.0 eCW1 ([facility]) 30.5 27.0-33.0 eCW1 ([facility]) 11.6 11.5-14.5 eCW1 ([facility]) 247 150-450 eCW1 ([facility]) 33.5 32.0-36.5 eCW1 ([facility]) ID Date Data Source [id number] 08/07/2020 10:20:00 AM EDT MED[facility] ([facility]) Name Value Range Interpretation Code Description Data Melissa rce(s) Supporting Document(s) Coronavirus 2019 Nasopharygeal Laboratory test result [facility] ([facility] ) This nucleic acid amplification test was developed and its performance characteristics determined by [facility]. Nucleic acid amplification tests include PCR and TMA. This test has not been FDA cleared or approved. This test has been authorized by FDA under an Emergency Use Authorization (EUA). This test is only authorized for the duration of time the declaration that circumstances exist justifying the authorization of the emergency use of in vitro diagnostic tests for detection of SARS-CoV-2 virus and/or diagnosis of COVID-19 infection under section 564(b)(1) of the Act, 21 U.S.C. 360bbb-3 (b) (1), unless the authorization is terminated or revoked sooner. When diagnostic testing is negative, the possibility of a false negative result should be considered in the context of a patient's recent exposures and the presence of clinical signs and symptoms consistent with COVID-19. An individual without symptoms of COVID-19 and who is not shedding SARS-CoV-2 virus would expect to have a negative (not detected) result in this assay. Performed at: [facility] [address] [id number] Supervisor [employer]od[employer] Assembly: Lima Juan MD, Phone: [phone] Not Detected ID Date Data Source [id number] 08/07/2020 10:20:00 AM EDT [facility] Name Value Range Interpretation Code Description Data Melissa rce(s) Supporting Document(s) SARS coronavirus 2 RNA [facility] This lab was ordered by [facility] and reported by [facility]. ID Date Data Source [id number] 07/31/2020 03:28:00 PM EDT [facility] ([facility]) Name Value Range Interpretation Code Description Data Melissa rce(s) Supporting Document(s) Inr 0.98 MED[facility] ([facility]) THERAPUTIC HUMAN INR VALUES INDICATIONS NORMAL RANGES PROPHYLAXIS/TREATMENT OF: VENOUS THROMBOSIS 2.0-3.0 PULMONARY EMBOLISM 2.0-3.0 PREVENTION OF SYSTEMIC EMBOLISM FROM: TISSUE HEART VALVES 2.0-3.0 ACUTE MYOCARDIAL INFARCTION 2.0-3.0 VALVULAR HEART DISEASE 2.0-3.0 ATRIAL FIBRILLATION 2.0-3.0 MECHANICAL VALVES(HIGH RISK) 2.5-3.5 RECURRENT MYOCARDIAL INFARCTION 2.5-3.5 Prothrombin Time 13.2 s 11.8-14.0 [facility] ([facility]) Partial Thromboplastin Time 27.6 s 25.0-38.4 [facility] ([facility] ) ID Date Data Source [id number] 07/31/2020 03:28:00 PM EDT [facility] ([facility]) Name Value Range Interpretation Code Description Data Melissa rce(s) Supporting Document(s) Platelets [#/volume] in Blood by Automated count 222 10 150-450 [facility] ([facility]) ID Date Data Source [id number] 06/21/2020 09:00:00 AM EDT [facility] ([facility]) Name Value Range Interpretation Code Description Data Melissa rce(s) Supporting Document(s) Collagen Epinephrine 122 s 74-162 [facility] ([facility] ) Results may be affected by platelet coun ts less than 150,000/mL or hematocrits less than 35%. If COL/EPI is NORMAL, COL/ADP is not performed. Result Interpretation: COL/EPI COL/ADP NORMAL NORMAL NORMAL ASA ABNORMAL NORMAL vWD ABNORMAL NORMAL GLANZMANN'S ABNORMAL ABNORMAL THROMBASTHENIA POSSIBLE DRUG ABNORMAL ABNORMAL EFFECT ID Date Data Source [id number] 06/21/2020 09:00:00 AM EDT [facility] ([facility]) Name Value Range Interpretation Code Description Data Melissa rce(s) Supporting Document(s) Prothrombin time (PT) Laboratory test result [facility] ([facility]) Platelets [#/volume] in Blood by Automated count Laboratory test resu lt [facility] ([facility]) ID Date Data Source [id number] 06/20/2020 09:00:00 AM EDT [facility] ([facility]) Name Value Range Interpretation Code Description Data Melissa rce(s) Supporting Document(s) Partial Thromboplastin Time 26.9 s 24.2-38.5 [facility] ([facility]) Prothrombin Time 13.2 s 12.5-14.3 [facility] ([facility]) Inr 0.98 [facility] ([facility] ) THERAPUTIC HUMAN INR VALUES INDICATIONS NORMAL RANGES PROPHYLAXIS/TREATMENT OF: VENOUS THROMBOSIS 2.0-3.0 PULMONARY EMBOLISM 2.0-3.0 PREVENTION OF SYSTEMIC EMBOLISM FROM: TISSUE HEART VALVES 2.0-3.0 ACUTE MYOCARDIAL INFARCTION 2.0-3.0 VALVULAR HEART DISEASE 2.0-3.0 ATRIAL FIBRILLATION 2.0-3.0 MECHANICAL VALVES(HIGH RISK) 2.5-3.5 RECURRENT MYOCARDIAL INFARCTION 2.5-3.5 ID Date Data Source [id number] 06/20/2020 09:00:00 AM EDT [facility] ([facility]) Name Value Range Interpretation Code Description Data Melissa rce(s) Supporting Document(s) Platelets [#/volume] in Blood by Automated count 232 10 150-450 [facility] ([facility]) ID Date Data Source [id number] 06/07/2020 12:00:00 AM EDT [facility] Justen SOLORZANO Patient Name: MONIQUE ISABEL [facility] Date of : 1960[address] Date of Exam: 06/07/2020AMELIE Moser [id number]#: Fax: [phone] EXAM: MRI LUMBAR SPINE WITHOUT CONTRASTPROCEDURE INFORMATION:Exam: MR Lumbar Spine Without Contrast.Exam date and time: 06/07/2020 3:29 PM Age: 60 years oldClinical indication: Low back painTECHNIQUE: Imaging protocol: [facility] magnetic resonance images of thelumbar spine without intravenous contrast.COMPARISON: No relevant prior studies available.FINDINGS:Vertebral body heights are maintained. Degenerative disc height loss atL5-S1. No abnormal marrow signal. No cord compression. No abnormal cordsignal. Conus medullaris terminates at the L1 level. Paravertebral softtissues are unremarkable.L1-L2: No significant canal or foraminal narrowing.L2-L3: No significant canal or foraminal narrowing.L3-L4: Broad-based disc bulge causes mild canal narrowing and mildbilateral foraminal narrowing. L4-L5: Left paracentral disc protrusioncauses mild canal narrowing and effacement of the left lateral recess withlikely impingement upon the traversing left L5 nerve root. Mild bilateralforaminal narrowing.L5-S1: Broad-based disc bulge and facet hypertrophy cause mild canalnarrowing and moderate bilateral foraminal narrowing.IMPRESSION:1. Left paracentral disc protrusion at L4-L5 causing effacement of the leftlateral recess with likely impingement upon the traversing left L5 nerveroot.2. Additional spondylotic changes of the lower lumbar spine, as above.Thank you for allowing us to participate in the care of your patient.Dictated and Authenticated by: Arturo Wiggins MD 06/07/2020 5:05 PMEastern Time ([place] & Yam[place])VradV/jmcThank you for referring JOHNNY ISABEL to our office. Electronically Signed - BIBI 06/10/20 13:17 Name Value Range Interpretation Code Description Data Melissa rce(s) Supporting Document(s) ID Date Data Source LUNA TITER & PATTERN 11/22/2019 12:00:00 AM EST eCW1 ([facility]) Name Value Range Interpretation Code Description Data Melissa rce(s) Supporting Document(s) Negative . LUNA (HEP2) eCW1 ([facility]) ID Date Data Source RHEUMATOID FACTOR QUANT 11/22/2019 12:00:00 AM EST eCW1 ([facility]) Name Value Range Interpretation Code Description Data Melissa rce(s) Supporting Document(s) < 10.0 <15.0 RHEUMATOID FACTOR QUANT eCW1 ( [facility]) ID Date Data Source ERYTHROCYTE SEDIMENTATION RATE 11/22/2019 12:00:00 AM EST eC W1 ([facility]) Name Value Range Interpretation Code Description Data Melissa rce(s) Supporting Document(s) 8 0-20 ERYTHROCYTE SEDIMENTATION RATE eCW1 ([facility]) ID Date Data Source [id number] 11/17/2019 10:11:00 AM EST [facility] ([facility] ) Name Value Range Interpretation Code Description Data Melissa rce(s) Supporting Document(s) Surgical pathology study Laboratory test result [facility]) FINAL DIAGNOSIS A - Cecum, polyps, polypectomy: Adenomatous polyp/tubular adenoma. A small fragment of hyperplastic polyp is also noted. B - Transverse colon, polyp, polypectomy: Adenomatous polyp/tubular adenoma fragments. 11/22/2019 - 08 CLINICAL DIAGNOSIS Screening 11/17/2019 - 1455 GROSS DIAGNOSIS A - Received in formalin labeled "snare colon polyps cecum" are multiple pink fragments of mucosa measuring 0.4 x 0.2 x 0.2 cm in aggregate. All in one. B - Received in formalin labeled "snare polyps transverse colon" are multiple pink fragments of mucosa measuring 0.5 x 0.3 x 0.2 cm in aggregate. All in one. -BP 11/17/2019 - 1455 Signed Junior Pastor MD 11/22/2019 0833 Procedure Social History Code Duration Value Status Description Data Source(s ) Smoking 10/31/2020 12:00:00 AM EST Never Smoker completed Never S moker eCW1 ([facility]) Smoking 10/31/2020 12:00:00 AM EST Never Smoker completed Never S moker eCW1 ([facility]) Smoking 10/31/2020 12:00:00 AM EST Never Smoker completed Never S moker eCW1 ([facility]) Smoking 10/31/2020 12:00:00 AM EST Never Smoker completed Never S moker eCW1 ([facility]) Smoking 03/01/2020 12:00:00 AM EDT Non Smoker completed Non Smoke r [facility] ([facility] ) Smoking 02/22/2020 12:00:00 AM EDT Never Smoker completed Never S moker eCW1 ([facility]) Smoking 02/22/2020 12:00:00 AM EDT Never Smoker completed Never S moker eCW1 ([facility]) Vital Signs ID Date Data Source UNK Name Value Range Interpretation Code Description Data Source(s) Body surface area Derived from formula 2.13 m2 2.13 m2 [facility] ([facility]) Body weight 97.524 kg 97.524 kg [facility] ([facility]) Emma body weight 160 [lb_av] 160 [lb_av] MEDEN T ([facility]) Body mass index (BMI) [Ratio] 31.7 kg/m2 31.7 k g/m2 [facility] ([facility]) Body weight 215.00 [lb_av] 215.00 [lb_av] MEDEN T ([facility]) Body height 69 [in_i] 69 [in_i] [facility] ([facility]) 5'9" Diastolic blood pressure 88 mm[Hg] 88 mm[Hg] [facility] Systolic blood pressure 144 mm[Hg] 144 mm[Hg] M EDENT ([facility]) Body temperature 97.1 [degF] 97.1 [degF] [facility] ([facility]) Body mass index (BMI) [Ratio] 30.6 kg/m2 30.6 k g/m2 [facility] ([facility]) Body weight 210.12 [lb_av] 210.12 [lb_av] MEDEN T ([facility]) Body height 69.5 [in_i] 69.5 [in_i] [facility] ([facility]) 5'9.50" Body temperature 97.3 [degF] 97.3 [degF] [facility] ([facility]) Body surface area Derived from formula 2.14 m2 2.14 m2 [facility] ([facility]) Body weight 98.431 kg 98.431 kg [facility] Emma body weight 160 [lb_av] 160 [lb_av] MEDEN T ([facility]) Body mass index (BMI) [Ratio] 32.0 kg/m2 32.0 k g/m2 [facility] ([facility]) Body weight 217.00 [lb_av] 217.00 [lb_av] MEDEN T ([facility]) Body height 69 [in_i] 69 [in_i] [facility] ([facility]) 5'9" Body temperature 97.3 [degF] 97.3 [degF] [facility] ([facility]) Diastolic blood pressure 78 mm[Hg] 78 mm[Hg] eCW1 ([facility]) Systolic blood pressure 142 mm[Hg] 142 mm[Hg] e CW1 ([facility]) Body temperature 97.2 [degF] 97.2 [degF] eCW1 ( [facility]) Respiratory rate 18 /min 18 /min eCW1 ([facility]) Heart rate 90 /min 90 /min eCW1 ([facility]) Body mass index (BMI) [Ratio] 32.13 kg/m2 32.13 kg/m2 eCW1 ([facility]) Body height [in_us] eCW1 ([facility]) Body weight Measured 217.6 [lb_av] 217.6 [lb_av ] eCW1 ([facility]) Body weight 94.349 kg 94.349 kg [facility] ([facility]) Body mass index (BMI) [Ratio] 30.7 kg/m2 30.7 k g/m2 [facility] ([facility]) Body weight 208.00 [lb_av] 208.00 [lb_av] MEDEN T ([facility]) Body height 69 [in_i] 69 [in_i] [facility] ([facility]) 5'9" Body weight 94.349 kg 94.349 kg [facility]) Body mass index (BMI) [Ratio] 30.7 kg/m2 30.7 k g/m2 [facility] ([facility]) Body weight 208.00 [lb_av] 208.00 [lb_av] MEDEN T ([facility]) Body height 69 [in_i] 69 [in_i] [facility] ([facility] ) 5'9" Diastolic blood pressure 72 mm[Hg] 72 mm[Hg] eCW1 ([facility]) Systolic blood pressure 126 mm[Hg] 126 mm[Hg] e CW1 ([facility]) Body temperature 97.3 [degF] 97.3 [degF] eCW1 ( [facility]) Respiratory rate 18 /min 18 /min eCW1 ([facility]) Heart rate 78 /min 78 /min eCW1 ([facility]) Body mass index (BMI) [Ratio] 31.89 kg/m2 31.89 kg/m2 eCW1 ([facility]) Body height [in_us] eCW1 ([facility]) Body weight Measured 216 [lb_av] 216 [lb_av] eC W1 ([facility]) Patient Treatment Plan of Care Planned Activity Planned Date Details Description Data Source (s) meloxicam 15 MG Oral Tablet 11/22/2019 12:00:00 AM EST eCW1 ([facility])
--- OUTSIDE RECORDS SUMMARY | 2021-01-02 08:02 | CCD ---
Author Author [facility] Organization [facility] Address Unknown Phone Unavailable Care Team Providers Care Senior Software Engineering Manager Name Role Phone Matt Arturo Unavailable PROBLEMS Type Condition ICD9-CM Code [id number] Code Onset Dates Condition S tatus SNOMED Code Notes Problem Depression with anxiety F41.8 Active 71124218 6 Problem Generalized osteoarthrosis, involving multiple sites M15.9 Active 725080418 Problem Other chronic pain G89.29 Active 76455827 Problem Unspecified essential hypertension I10 Activ e 51562836 Problem Erectile disorder, generalized, mild F52.21 Act joshua 006061082 Problem History of adenomatous polyp of colon Z86.010 Ac tive 297019902 Problem Borderline hyperlipidemia E78.5 Active 183864 04 ALLERGIES No Known Allergies ENCOUNTERS from 1960 to 2020-10-03 Encounter Location Date Provider Diagnosis [id number] [place] [address] Sep, Byron Gutierrez IMMUNIZATIONS Vaccine Route Administration Date Status Influenza [...] Notes Total Score: 2 Interpretation: Alcohol Education Quaker: Question Answer Notes Quaker No scientology beliefs that would impact health care. Drug and Alcohol Question Answer Notes Total Score: 0 Interpretation: No problems reported Tobacco Use: Question Answer Notes Are you a: never smoker REASON FOR REFERRAL No Information VITAL SIGNS No information MEDICATIONS Medication SIG (Take, Route, Frequency, Duration) Notes Start Da te End Date Status Calcium 600 MG 1 tablet with meals Orally Twice a day for 90 day(s) Active Lisinopril 10 MG 1 tablet Orally Once a day Active Sildenafil Citrate 100 MG 1 tablet as needed Orally Once a day f or 90 day(s) Not-Taking Multivital Active Meloxicam 15 MG 1 tablet Orally once daily as needed for 30 day( s) Nov, Active Clonazepam 0.5MG 1 tablet as needed for anxiety Orally Daily for 30 Active FLUoxetine HCl 20 MG 1 capsule Orally Once a day Active PROCEDURES No Information RESULTS No Results REASON FOR VISIT clonazepam MEDICAL (GENERAL) HISTORY Type Description Date Medical History HTN Medical History ED Medical History depression/anxiety--manifest s as vague chest pain--had stress tests etc in [place] ~ 2012 Medical History s/p sleeve gastrectomy-- lost 80#, regai rachel ~ 20# Medical History adenomatous colopn polyps 11/2019 Surgical History gastric sleeve surgery for weight loss 1 12/01 Surgical History hernia Surgical History TURP (in [place]) 2016 Surgical History colonoscopy--adenomatous polyps 11/2019 Goals Section No Information Health Concerns No Information MEDICAL EQUIPMENT No Information MENTAL STATUS No Information FUNCTIONAL STATUS No Information ASSESSMENTS No Information PLAN OF TREATMENT Medication Medication Name Sig Start Date Stop Date Clonazepam 0.5MG 1 tablet as needed for anxiety Orally Daily for 30 Next Appt Details Provider Name:Arturo Matt, 2020-10 08:00:00 AM, [address], [place], [address], Insurance Providers Payer Name Payer Address Payer Phone Insured Name Patient Relati onship to Insured Coverage Start Date Coverage End Date [employer] PPO [phone] [address] JOHNNY ISABEL self
--- OUTSIDE RECORDS SUMMARY | 2021-01-02 08:02 | CCD | Continuity of Care Document ---
Author Author Ilir VICENTE Organization Unknown Address [address], [address] [place] [address] Phone [phone] Care Team Providers Care Small Arms Artillery Repairer Name Role Phone Kayla Pike Narendra Fermin AUTM [phone] AUTM Unavailable Iveth Gutierrez P.A.-C. AUTM Problems Active Problems Provider Date Essential hypertension CARLEEN Owusu Onset: Social History Type Date Description Comments Sex Unknown ETOH Use 2-3 A Week Tobacco Use Start: Unknown Non Smoker Recreational Drug Use Denies Drug Use Smoking Status Reviewed: 03/01/20 Non Smoker Allergies, Adverse Reactions, Alerts Description No Known Drug Allergies Medications Active Medications SIG Qnty Indications Ordering Provide r Date Clenpiq 10-3.5-12mg-GM -GM/160ML S olution take as directed per doctor's bowel prep instructions. 320ml Z12.1 1 Neal Haile MD 12/04/[address] take 4 tabs by mouth prior to procedure per instructions. 4tabs Z12.11 Neal Haile MD 12/04/2020 Miralax 17GM/Scoop Powder use as instructed by doctor for bowel prep 510gm Z12.11 Neal Haile MD 12/04/2020 Fluoxetine HCL 20mg Capsules daily Unknown Lisinopril 10mg Tablets once a day Unknown Calcium 600mg Tablets 1 by mouth twice daily Unknown Centrum Silver Tablets 1 delfino day Unknown Clonazepam 0.5mg Tablets prn Unknown Gabapentin 300mg Capsules tid Unknown Immunizations Description No Information Available Vital Signs Date Vital Result Comment 12/04/2020 11:11am BP Systolic 144 mmHg BP Diastolic 88 mmHg Height 69 inches 5'9" Weight 215.00 lb BMI (Body Mass Index) 31.7 kg/m2 [place] Body Weight 160 lb Weight 97.524 kg BSA (Body Surface Area) 2.13 m2 02/28/2020 9:53am Body Temperature 97.3 F Height 69 inches 5'9" Weight 217.00 lb BMI (Body Mass Index) 32.0 kg/m2 [place] Body Weight 160 lb Weight 98.431 kg BSA (Body Surface Area) 2.14 m2 Results Description No Information Available Procedures Description No Information Available Medical Devices Description No Information Available Encounters Description No Information Available Assessments Date Code Description Provider 12/04/2020 Z12.11 Encounter for screening for augustus gnant neoplasm of colon CARLEEN Owusu 12/04/2020 Z86.010 Personal history of colonic poly ps CARLEEN Owusu Plan of Treatment 12/04/2020 - CARLEEN Owusu* Z12.11 Encounter for screening for malignant neoplasm of colon * Z86.010 Personal history of colonic polyps * * New Medication:* Clenpiq 10-3.5-12 mg-GM -GM/160ML * Dulcolax 5 mg * Miralax 17 GM/Scoop * New Orders:* Colonoscopy, Ordered: 12/04/20 * Comments:* Will arrange for colonoscopy. Reviewed risks and benefits of the procedure, as well as other options, with the patient. Bowel prep procedure was discussed with patient, as well as risks and side effects associated with the bowel prep. He will take 1 dose of Miralax daily x 1 week prior to the colonoscopy for additional prep. Patient verbalized understanding of all of the above and is in agreement to proceed. Patient will seek medical attention for any acute changes. Will monitor. * Follow up:* As scheduled, sooner if needed. Functional Status Description No Information Available Mental Status Description No Information Available Referrals Description No Information Available
--- OUTSIDE RECORDS SUMMARY | 2021-01-02 08:02 | CCD ---
Author Author [facility] Organization [facility] Address Unknown Phone Unavailable Care Team Providers Care Freight Caller Name Role Phone Matt Arturo Unavailable PROBLEMS Type Condition ICD9-CM Code VPH87-HT Code Onset Dates Condition S tatus SNOMED Code Notes Problem Depression with anxiety F41.8 Active 53076322 6 Problem Generalized osteoarthrosis, involving multiple sites M15.9 Active 759975938 Problem Other chronic pain G89.29 Active 20507144 Problem Unspecified essential hypertension I10 Activ e 61203878 Problem Erectile disorder, generalized, mild F52.21 Act joshua 288031320 Problem History of adenomatous polyp of colon Z86.010 Ac tive 424006438 Problem Borderline hyperlipidemia E78.5 Active 305377 04 ALLERGIES No Known Allergies ENCOUNTERS from 1960 to 2020-12-04 Encounter Location Date Provider Diagnosis [address] [place] [address] Nov, Byron Gutierrez IMMUNIZATIONS Vaccine Route Administration Date [...] Notes Total Score: 2 Interpretation: Alcohol Education Spiritism: Question Answer Notes Spiritism No hoahaoism beliefs that would impact health care. Drug [...] spine, L5-S1 radicul opathy non NCS/EMG at [facility]; s/p epidurals [facility] 08/04 Surgical History gastric sleeve surgery for weight loss 1 12/01 Surgical History hernia Surgical History TURP (in [place]) 2016 Surgical History colonoscopy--adenomatous polyps 11/2019 Goals Section No Information Health Concerns No Information MEDICAL EQUIPMENT No Information MENTAL STATUS No Information FUNCTIONAL STATUS No Information ASSESSMENTS No Information PLAN OF TREATMENT Medication Medication Name Sig Start Date Stop Date Clonazepam 0.5MG 1 tablet as needed for anxiety Orally Daily for 30 Next Appt Details Provider Name:Celina Amilcar, 2020-11 09:00:00 AM, [address], [place], [address] Insurance Providers Payer Name Payer Address Payer Phone Insured Name Patient Relati onship to Insured Coverage Start Date Coverage End Date [employer] PPO [phone] [address] JOHNNY ISABEL self
[2021-01-02] MEDS ORDERED: propofoL 200 MG/20 ML VIAL As Ordered ONE (09:06)
--- NOTE | 2021-01-02 09:22 | ROOR ---
Patient Name: Ilir Sánchez Procedure Date: 01/02/2021 8:56 AM Date of : 1960 Age: 60 Room: [facility] Gender: Male Note Status: Finalized Procedure: Colonoscopy Indications: Screening for colorectal malignant neoplasm Providers: Jeff Howell MD Referring MD: Arturo Gutierrez MD Requesting Provider: Medicines: Monitored Anesthesia Care Complications: No immediate complications. Procedure: Pre-Anesthesia Assessment: - Prior to the procedure, a History and Physical was performed, and patient medications and allergies were reviewed. The patient is competent. The risks and benefits of the procedure and the sedation options and risks were discussed with the patient. All questions were answered and informed consent was obtained. Patient identification and proposed procedure were verified by the physician, the nurse and the anesthesiologist in the procedure room. Mental Status Examination: alert and oriented. Airway Examination: normal oropharyngeal airway and neck mobility. Respiratory Examination: clear to auscultation. CV Examination: normal. Prophylactic Antibiotics: The patient does not require prophylactic antibiotics. Prior Anticoagulants: The patient has taken no previous anticoagulant or antiplatelet agents. ASA Grade Assessment: II - A patient with mild systemic disease. After reviewing the risks and benefits, the patient was deemed in satisfactory condition to undergo the procedure. The anesthesia plan was to use monitored anesthesia care (MAC). Immediately prior to administration of medications, the patient was re-assessed for adequacy to receive sedatives. The heart rate, respiratory rate, oxygen saturations, blood pressure, adequacy of pulmonary ventilation, and response to care were monitored throughout the procedure. The physical status of the patient was re-assessed after the procedure. The Colonoscope was introduced through the anus and advanced to the terminal ileum, with identification of the appendiceal orifice and IC valve. The colonoscopy was performed without difficulty. The patient tolerated the procedure well. The quality of the bowel preparation was good. The terminal ileum, ileocecal valve, appendiceal orifice, and rectum were photographed. Scope insertion time was 2 minutes. Scope withdrawal time was 9 minutes. The total duration of the procedure was 11 minutes. Findings: The perianal and digital rectal examinations were normal. The terminal ileum appeared normal. A 4 mm polyp was found in the transverse colon. The polyp was sessile. The polyp was removed with a hot snare. Resection and retrieval were complete. Verification of patient identification for the specimen was done by the physician and nurse using the patient's name, date and medical record number. Estimated blood loss was minimal. A few small-mouthed diverticula were found in the sigmoid colon. There was no evidence of diverticular bleeding. Non-bleeding external and internal hemorrhoids were found during retroflexion. The hemorrhoids were medium-sized. Impression: - The examined portion of the ileum was normal. - One 4 mm polyp in the transverse colon, removed with a hot snare. Resected and retrieved. - Mild diverticulosis in the sigmoid colon. There was no evidence of diverticular bleeding. - Non-bleeding external and internal hemorrhoids. Recommendation: - Patient has a contact number available for emergencies. The signs and symptoms of potential delayed complications were discussed with the patient. Return to normal activities tomorrow. Written discharge instructions were provided to the patient. - High fiber diet. - Continue present medications. - Await pathology results. - Repeat colonoscopy in 5 years for surveillance based on pathology results and due to personal history of colon polyps in past Colonoscopy. - Telephone GI clinic for pathology results in 2 weeks. - Return to primary care physician. Procedure Code(s): --- Professional --- 92738, Colonoscopy, flexible; with removal of tumor(s), polyp(s), or other lesion(s) by snare technique Diagnosis Code(s): --- Professional --- Z12.11, Encounter for screening for malignant neoplasm of colon K64.8, Other hemorrhoids K63.5, Polyp of colon K57.30, Diverticulosis of large intestine without perforation or abscess without bleeding CPT copyright 2019 [employer]. All rights reserved. The codes documented in this report are preliminary and upon child attendant review may be revised to meet current compliance requirements. Jeff Howell MD Jeff Howell MD 01/02/2021 9:22:21 AM Electronically signed by Jeff Howell MD Number of Addenda: 0 Note Initiated On: 01/02/2021 8:56 AM Estimated Blood Loss: Estimated blood loss: none.
[2021-01-02 09:40] VITALS: BP 187/92
== END 2021-01-02 09:48 | disposition home or self-care (01) ==
LOC: M OPP 07:58
PROVIDERS: ATTEND Internal Medicine Gastroenterology
DX: Z12.11 Encounter for screening for malignant neoplasm of colon (principal); K63.5 Polyp of colon; K57.30 Diverticulosis of large intestine without perforation or abscess without bleeding; K64.8 Other hemorrhoids; I10 Essential (primary) hypertension; M19.90 Unspecified osteoarthritis, unspecified site; F41.9 Anxiety disorder, unspecified; F32.9 Major depressive disorder, single episode, unspecified; G47.30 Sleep apnea, unspecified; Z98.84 Bariatric surgery status; Z79.899 Other long term (current) drug therapy; Z82.49 Family history of ischemic heart disease and other diseases of the circulatory system; Z80.1 Family history of malignant neoplasm of trachea, bronchus and lung; Z80.8 Family history of malignant neoplasm of other organs or systems

== ENCOUNTER → 2021-02-20 | Outpatient (CLI) | payer SELFPAY ==
[~2021-02-20] MED LIST changes: -NS 1,000 ML IV ONE
== END ==
LOC: M LABSMTC 09:43
PROVIDERS: ATTEND Pediatrics
DX: Z20.822 Contact with and (suspected) exposure to COVID-19 (principal)

== ENCOUNTER → 2021-08-13 | Outpatient (REF) | payer OTHER, BC ==
[2021-08-13 18:05] LABS: PLATELET COUNT, AUTOMATED 225 10^3/uL (150-450)
[2021-08-13 18:15] LABS: INR 0.98; PROTHROMBIN TIME 13.4 SECONDS (12.7-14.5)
[2021-08-13 18:16] LABS: PARTIAL THROMBOPLASTIN TIME 26.7 SECONDS (25.9-37.0)
== END ==
LOC: M LABDRWAD 17:05
PROVIDERS: ATTEND Physical Medicine & Rehabilitation
DX: M47.27 Other spondylosis with radiculopathy, lumbosacral region (principal)

== ENCOUNTER → 2021-11-05 | Outpatient (CLI) | payer OTHER ==
[~2021-11-05] MED LIST changes: +ISOVUE-300 61% 50ML VIAL As Ordered ONE; +LIDOCAINE 1% MDV 20ML VIAL As Ordered ONE; +methylPREDNISolone SUSP 40MG/ML 1ML VIAL (DEPO MEDROL) As Ordered ONE
--- NOTE | 2021-11-05 17:12 | REP ---
INDICATION: HIGH RISK BREAST CA. COMPARISON: None TECHNIQUE: The procedure was performed by ANDREA Morales, under the direct supervision of Dr. Godwin. The benefits and risks of the procedure were explained to the patient, and an informed consent was obtained. Directly prior to the start of the procedure, a formal time-out was completed in the procedure room. The right hip joint space was localized using fluoroscopic guidance. The skin was prepped and draped in a sterile fashion. Approximately 5 mL of 1% Lidocaine 10 mg/ml was used as a local anesthetic. Using fluoroscopic guidance, a #22 gauge spinal needle was inserted and advanced into the right hip joint space. Approximately 3 mL of Isovue 300 was injected to verify placement. Seven mL of a solution containing 5 mL 1% lidocaine 10 mg/ml and 2 mL Depo-Medrol 40 mg/mL was injected into the joint space. The needle was removed and hemostasis was achieved. FINDINGS: The patient tolerated the procedure well and there were no immediate complications. IMPRESSION: 1. Technically successful right hip injection. 0.1 minutes of fluoroscopy time was utilized for this procedure. Some fluoroscopic images are performed with last image hold technology. These images require no additional radiation. <Electronically signed by Viridiana Morfin > 11/05/21 [id number] <Electronically signed by Donavan Godwin > 11/05/21 [id number]
== END ==
LOC: M RADPRO 10:43
PROVIDERS: ATTEND Physician Assistant
DX: M16.11 Unilateral primary osteoarthritis, right hip (principal)
CPT/HCPCS: 20610; 77002; J1030; Q9967

== ENCOUNTER → 2022-02-05 | Outpatient (REF) | payer OTHER ==
[~2022-02-05] MED LIST changes: -ISOVUE-300 61% 50ML VIAL As Ordered ONE; -LIDOCAINE 1% MDV 20ML VIAL As Ordered ONE; -methylPREDNISolone SUSP 40MG/ML 1ML VIAL (DEPO MEDROL) As Ordered ONE
[2022-02-05 16:56] LABS: HEMATOCRIT 43.2 % (42.0-52.0); HEMOGLOBIN 14.5 g/dl (13.5-17.5); MEAN CORPUSCULAR HEMOGLOBIN 29.8 pg (27.0-33.0); MEAN CORPUSCULAR HGB CONC 33.6 g/dl (32.0-36.5); MEAN CORPUSCULAR VOLUME 88.9 fl (80.0-96.0); PLATELET COUNT, AUTOMATED 269 10^3/uL (150-450); RED BLOOD COUNT 4.86 10^6/uL (4.30-6.10); WHITE BLOOD COUNT 7.3 10^3/uL (4.0-10.0)
[2022-02-05 17:39] LABS: ALBUMIN 3.5 GM/DL (3.2-5.2); ALT/SGPT 27 U/L (12-78); BILIRUBIN,TOTAL 0.4 MG/DL (0.2-1.0); BLOOD UREA NITROGEN 16 MG/DL (7-18); CALCIUM LEVEL 9.2 MG/DL (8.8-10.2); CARBON DIOXIDE LEVEL 31 MEQ/L (21-32); CHLORIDE LEVEL 109 MEQ/L (98-107); CHOLESTEROL LEVEL 200 MG/DL (<200); CHOLESTEROL RISK RATIO 3.278 (<5); CREATININE FOR GFR 0.95 MG/DL (0.70-1.30); FREE T4 1.04 NG/DL (0.76-1.46); GLOMERULAR FILTRATION RATE > 60.0 (>49); GLUCOSE, FASTING 80 MG/DL (70-100); HDL CHOLESTEROL 61 MG/DL (>40); LDL CHOLESTEROL 107 MG/DL (<100); NON-HDL-C 139 MG/DL; POTASSIUM SERUM 4.1 MEQ/L (3.5-5.1); SODIUM LEVEL 143 MEQ/L (136-145); THYROID STIMULATING HORMONE 0.648 uIU/ML (0.358-3.740); TOTAL PROTEIN 6.4 GM/DL (6.4-8.2); TRIGLYCERIDES LEVEL 160 MG/DL (<150)
== END ==
LOC: M SFHCADAM 11:52
PROVIDERS: ATTEND Family Medicine
DX: I10 Essential (primary) hypertension (principal); E78.5 Hyperlipidemia, unspecified; F41.8 Other specified anxiety disorders; Z12.5 Encounter for screening for malignant neoplasm of prostate

== ENCOUNTER 2022-07-08 13:54 | Outpatient (RCR) | payer OTHER | END 2022-07-15 | LOC: M PT 13:54 | PROVIDERS: ATTEND Physician Assistant | DX: M51.16 Intervertebral disc disorders with radiculopathy, lumbar region (principal) ==

== ENCOUNTER → 2022-08-06 | Outpatient (REF) | payer OTHER ==
[2022-08-06 13:01] LABS: APPEARANCE, URINE MANUAL CLEAR (CLEAR); BILIRUBIN, URINE MANUAL NEGATIVE (NEGATIVE); BLOOD URINE MANUAL NEGATIVE (NEGATIVE); COLOR, URINE MANUAL YELLOW (YELLOW); GLUCOSE, URINE (UA) MANUAL NEGATIVE (NEGATIVE); KETONE, URINE MANUAL NEGATIVE (NEGATIVE); LEUKOCYTE ESTERASE, URINE MAN NEGATIVE (NEGATIVE); NITRITE, URINE MANUAL NEGATIVE (NEGATIVE); PROTEIN, URINE MANUAL NEGATIVE (NEGATIVE); UROBILINOGEN, URINE MANUAL NORMAL (NORMAL)
== END ==
LOC: M SFHCADAM 11:13
PROVIDERS: ATTEND Family Medicine
DX: N40.1 Benign prostatic hyperplasia with lower urinary tract symptoms (principal)

== ENCOUNTER 2022-08-12 10:42 | Outpatient (RCR) | payer OTHER | END 2022-08-14 | LOC: M PT 10:42 | PROVIDERS: ATTEND Physician Assistant | DX: M51.16 Intervertebral disc disorders with radiculopathy, lumbar region (principal) ==

== ENCOUNTER → 2022-08-26 | Outpatient (REF) | payer OTHER ==
[~2022-08-26] MED LIST changes: +TAMS1CAP17
[2022-08-26 14:25] LABS: HEMATOCRIT 42.6 % (42.0-52.0); HEMOGLOBIN 13.8 g/dl (13.5-17.5); MEAN CORPUSCULAR HGB CONC 32.4 g/dl (32.0-36.5); MEAN CORPUSCULAR VOLUME 89.5 fl (80.0-96.0); PLATELET COUNT, AUTOMATED 265 10^3/uL (150-450); RED BLOOD COUNT 4.76 10^6/uL (4.30-6.10); WHITE BLOOD COUNT 5.9 10^3/uL (4.0-10.0)
[2022-08-26 15:20] LABS: ALBUMIN 3.3 GM/DL (3.2-5.2); ALT/SGPT 19 U/L (12-78); BILIRUBIN,TOTAL 0.5 MG/DL (0.2-1.0); BLOOD UREA NITROGEN 15 MG/DL (7-18); CALCIUM LEVEL 9.4 MG/DL (8.8-10.2); CARBON DIOXIDE LEVEL 32 MEQ/L (21-32); CHLORIDE LEVEL 107 MEQ/L (98-107); CREATININE FOR GFR 0.96 MG/DL (0.70-1.30); FREE T4 1.04 NG/DL (0.76-1.46); GLOMERULAR FILTRATION RATE > 60.0 (>49); GLUCOSE, FASTING 107 MG/DL (70-100); POTASSIUM SERUM 4.3 MEQ/L (3.5-5.1); SODIUM LEVEL 141 MEQ/L (136-145); THYROID STIMULATING HORMONE 0.616 uIU/ML (0.358-3.740); TOTAL PROTEIN 6.4 GM/DL (6.4-8.2)
[2022-08-26 16:05] LABS: VITAMIN B12 LEVEL 337 PG/ML (247-911)
[2022-08-28 07:07] LABS: FOLATE 19.2 ng/mL (>3.0)
== END ==
LOC: M SFHCADAM 10:20
PROVIDERS: ATTEND Family Medicine
DX: R41.3 Other amnesia (principal)

== ENCOUNTER 2022-08-29 13:24 | Emergency (ER) | payer OTHER ==
[~2022-08-29 13:24] MED LIST changes: -TAMS1CAP17
[2022-08-29] MEDS ORDERED: TAMS1CAP17 (13:32)
[2022-08-29 14:00] VITALS: BP 156/83
[2022-08-29 14:17] LABS: BASO % 0.8 % (0.0-1.0); EOS # 0.2 10^3/uL (0.0-0.5); EOS % 3.4 % (0.0-3.0); HEMATOCRIT 42.9 % (42.0-52.0); LYMPH # 0.9 10^3/uL (1.5-5.0); LYMPH % 16.4 % (24.0-44.0); MEAN CORPUSCULAR HEMOGLOBIN 28.6 pg (27.0-33.0); MEAN CORPUSCULAR HGB CONC 32.6 g/dl (32.0-36.5); MEAN CORPUSCULAR VOLUME 87.6 fl (80.0-96.0); MONO # 0.5 10^3/uL (0.0-0.8); MONO % 9.8 % (2.0-8.0); NEUTROPHILS # 3.7 10^3/uL (1.5-8.5); NEUTROPHILS % 69.4 % (36.0-66.0); PLATELET COUNT, AUTOMATED 244 10^3/uL (150-450); WHITE BLOOD COUNT 5.3 10^3/uL (4.0-10.0)
[2022-08-29 14:36] LABS: BLOOD UREA NITROGEN 12 MG/DL (7-18); CALCIUM LEVEL 8.9 MG/DL (8.8-10.2); CARBON DIOXIDE LEVEL 29 MEQ/L (21-32); CHLORIDE LEVEL 107 MEQ/L (98-107); CREATININE FOR GFR 1.04 MG/DL (0.70-1.30); GLOMERULAR FILTRATION RATE > 60.0 (>49); GLUCOSE, FASTING 129 MG/DL (70-100); POTASSIUM SERUM 4.1 MEQ/L (3.5-5.1); SODIUM LEVEL 140 MEQ/L (136-145)
== END 2022-08-29 15:02 | disposition home or self-care (01) ==
LOC: M ED 13:24
DX: I10 Essential (primary) hypertension (principal); F32.9 Major depressive disorder, single episode, unspecified; F41.9 Anxiety disorder, unspecified; Z98.84 Bariatric surgery status; Z79.899 Other long term (current) drug therapy

== ENCOUNTER 2022-09-09 09:15 | Outpatient (RCR) | payer OTHER ==
[~2022-09-09 09:15] MED LIST changes: +TAMS1CAP17
== END 2022-09-14 ==
LOC: M PT 09:15
PROVIDERS: ATTEND Physician Assistant
DX: M51.16 Intervertebral disc disorders with radiculopathy, lumbar region (principal)

== ENCOUNTER → 2022-09-24 | Outpatient (CLI) | payer OTHER | LOC: M RAD 08:34 | PROVIDERS: ATTEND Family Medicine | DX: N28.1 Cyst of kidney, acquired (principal); I10 Essential (primary) hypertension ==

== ENCOUNTER 2022-09-29 20:56 | Inpatient (IN) | payer OTHER ==
[~2022-09-29] VITALS: Ht 188 cm; Wt 100.4 kg
[2022-09-29 22:13] LABS: BASO # 0.1 10^3/uL (0.0-0.2); BASO % 0.9 % (0.0-1.0); EOS # 0.3 10^3/uL (0.0-0.5); EOS % 5.2 % (0.0-3.0); HEMATOCRIT 40.9 % (42.0-52.0); HEMOGLOBIN 13.1 g/dl (13.5-17.5); LYMPH # 1.2 10^3/uL (1.5-5.0); LYMPH % 21.5 % (24.0-44.0); MEAN CORPUSCULAR HEMOGLOBIN 27.8 pg (27.0-33.0); MEAN CORPUSCULAR VOLUME 86.7 fl (80.0-96.0); MONO # 0.5 10^3/uL (0.0-0.8); MONO % 8.8 % (2.0-8.0); NEUTROPHILS # 3.7 10^3/uL (1.5-8.5); NEUTROPHILS % 63.4 % (36.0-66.0); PLATELET COUNT, AUTOMATED 213 10^3/uL (150-450); RED BLOOD COUNT 4.72 10^6/uL (4.30-6.10); WHITE BLOOD COUNT 5.8 10^3/uL (4.0-10.0)
[2022-09-29 22:29] LABS: INR 0.99; PROTHROMBIN TIME 13.3 SECONDS (12.5-14.5)
[2022-09-29 22:30] LABS: PARTIAL THROMBOPLASTIN TIME 25.6 SECONDS (24.8-34.2)
[2022-09-29 22:46] LABS: CK-MB VALUE MASS < 1.0 NG/ML (<3.6); CPK CREATINE PHOSPHOKINASE 80 U/L (46-171); MB/CK RELATIVE INDEX 1.25 (< OR =4)
[2022-09-29 22:47] LABS: RSV AMPLIFICATION NEGATIVE (NEGATIVE)
[2022-09-29 22:47] LABS: BLOOD UREA NITROGEN 19 MG/DL (9-23); CALCIUM LEVEL 8.4 MG/DL (8.3-10.6); CARBON DIOXIDE LEVEL 27 MMOL/L (20-31); CHLORIDE LEVEL 105 MMOL/L (98-107); CREATININE FOR GFR 0.82 MG/DL (0.70-1.30); GLOMERULAR FILTRATION RATE > 60.0 (>49); GLUCOSE, FASTING 113 MG/DL (74-106); POTASSIUM SERUM 3.9 MMOL/L (3.5-5.1); SODIUM LEVEL 142 MMOL/L (136-145)
[2022-09-30] MEDS ORDERED: GABA-1171 PO (01:22)
[2022-09-30] MEDS ORDERED: VITMTA PO (01:22)
[2022-09-30] MEDS ORDERED: FLOM0.4C39 PO (01:22)
[2022-09-30] MEDS ORDERED: AMLO1TAB24 PO (01:22)
[2022-09-30] MEDS ORDERED: LISI20TA33 PO (01:22)
[2022-09-30] MEDS ORDERED: VITA100093 PO (01:22)
[2022-09-30] MEDS ORDERED: HOME MED LIST COMPLETE! XX SCH (01:25)
[2022-09-30] MEDS ORDERED: GABAPENTIN 100 MG CAP PO PRN (02:10)
[2022-09-30] MEDS ORDERED: ACETAMINOPHEN TAB 650MG DOSE (2X325MG) PO PRN (02:55)
[2022-09-30 06:41] LABS: CHOLESTEROL RISK RATIO 3.1 (<5); HDL CHOLESTEROL 53.1 MG/DL (>40); LDL CHOLESTEROL 85.5 MG/DL (<100); THYROID STIMULATING HORMONE 0.852 uIU/ML (0.55-4.78)
[2022-09-30 08:48] VITALS: BP_SYST 110; BP_SYST 111; BP_DIAS 58; BP_DIAS 60
[2022-09-30 08:57] LABS: HEMOGLOBIN A1c 5.7 % (4.0-6.0)
[2022-09-30] MEDS: ENOXAPARIN 40MG/0.4ML SYRINGE (J1650 PER 10MG) SC SCH (09:16)
[2022-09-30] MEDS: MULTIVITAMINS/MINERALS THERAP 1 TAB PO SCH (09:16)
[2022-09-30] MEDS: FLUoxetine 20MG CAP PO SCH (09:16)
[2022-09-30] MEDS: ASPIRIN 81 MG CHEW TABLET PO SCH (09:16)
[2022-09-30] MEDS: VITAMIN D 1,000 INTERNATIONAL UNITS TABLET PO SCH (09:16)
[2022-09-30 10:18] LABS: VITAMIN B12 LEVEL 333 PG/ML (211-911)
[2022-09-30 16:00] VITALS: BP 147/78
[2022-09-30 20:11] VITALS: BP 148/78
[2022-09-30 21:00] VITALS: BP 146/80
[2022-09-30] MEDS ORDERED: amLODIPine 5 MG TAB PO SCH (21:00)
[2022-09-30] MEDS ORDERED: TAMSULOSIN 0.4 MG CAP PO SCH (21:00)
[2022-10-01 05:54] VITALS: BP 146/77
[2022-10-01 05:59] LABS: BASO % 0.7 % (0.0-1.0); EOS # 0.3 10^3/uL (0.0-0.5); EOS % 6.1 % (0.0-3.0); HEMOGLOBIN 13.3 g/dl (13.5-17.5); LYMPH # 1.4 10^3/uL (1.5-5.0); LYMPH % 25.3 % (24.0-44.0); MEAN CORPUSCULAR HEMOGLOBIN 27.8 pg (27.0-33.0); MEAN CORPUSCULAR HGB CONC 32.4 g/dl (32.0-36.5); MEAN CORPUSCULAR VOLUME 85.8 fl (80.0-96.0); MONO # 0.6 10^3/uL (0.0-0.8); MONO % 11.3 % (2.0-8.0); NEUTROPHILS % 56.4 % (36.0-66.0); PLATELET COUNT, AUTOMATED 213 10^3/uL (150-450); RED BLOOD COUNT 4.78 10^6/uL (4.30-6.10); WHITE BLOOD COUNT 5.4 10^3/uL (4.0-10.0)
[2022-10-01 07:06] LABS: ALT/SGPT 15 U/L (7.0-40); BILIRUBIN,TOTAL 0.4 MG/DL (0.3-1.2); BLOOD UREA NITROGEN 18 MG/DL (9-23); CALCIUM LEVEL 8.8 MG/DL (8.3-10.6); CARBON DIOXIDE LEVEL 28 MMOL/L (20-31); CHLORIDE LEVEL 107 MMOL/L (98-107); CREATININE FOR GFR 0.87 MG/DL (0.70-1.30); GLOMERULAR FILTRATION RATE > 60.0 (>49); GLUCOSE, FASTING 98 MG/DL (74-106); MAGNESIUM LEVEL 2.1 MG/DL (1.8-2.4); POTASSIUM SERUM 3.5 MMOL/L (3.5-5.1); SODIUM LEVEL 143 MMOL/L (136-145); TOTAL PROTEIN 5.4 G/DL (5.7-8.2)
[2022-10-01 08:00] VITALS: BP 149/88
[2022-10-01] MEDS ORDERED: KEPP1TAB PO (10:18)
[2022-10-01] MEDS ORDERED: ASPI81CH8 PO (10:18)
[2022-10-01] MEDS: ASPIRIN 81 MG CHEW TABLET PO SCH (11:11)
[2022-10-01] MEDS: ENOXAPARIN 40MG/0.4ML SYRINGE (J1650 PER 10MG) SC SCH (11:11)
[2022-10-01] MEDS: MULTIVITAMINS/MINERALS THERAP 1 TAB PO SCH (11:11)
[2022-10-01] MEDS: VITAMIN D 1,000 INTERNATIONAL UNITS TABLET PO SCH (11:11)
[2022-10-01] MEDS: FLUoxetine 20MG CAP PO SCH (11:11)
[2022-10-01 15:01] LABS: CHOLESTEROL LEVEL 165 MG/DL (<200); CHOLESTEROL RISK RATIO 2.88 (<5); HDL CHOLESTEROL 57.2 MG/DL (>40); LDL CHOLESTEROL 85.4 MG/DL (<100); NON-HDL-C 108 MG/DL; TRIGLYCERIDES LEVEL 112 MG/DL (<150)
[2022-10-03 05:07] LABS: CERULOPLASMIN 19.6 mg/dL (16.0-31.0); VITAMIN B1 LEVEL WHOLE BLOOD 126.3 nmol/L (66.5-200.0); VITAMIN B6,PYRIDOXAL PHOSPHATE 10.7 ug/L (3.4-65.2)
== END 2022-10-01 16:12 | disposition home or self-care (01) | DRG 53 ==
LOC: M ED 20:56 → INTOOBSV 09-30 02:55 → M ED INP 09-30 02:55 → OBSVTOIN 09-30 13:07 → ENRESERV 09-30 14:46 → M MSPAV 09-30 15:40
PROVIDERS: ADMIT Internal Medicine; ATTEND Internal Medicine Nephrology
PROC: B246ZZZ Ultrasonography of Right and Left Heart (ICD-10-PCS; principal; 2022-10-01)
PROC: 4A00X4Z Measurement of Central Nervous Electrical Activity, External Approach (ICD-10-PCS; 2022-10-01)
DX: G40.89 Other seizures (principal); I67.89 Other cerebrovascular disease; R47.01 Aphasia; I10 Essential (primary) hypertension; F41.9 Anxiety disorder, unspecified; M19.90 Unspecified osteoarthritis, unspecified site; Z98.84 Bariatric surgery status; Z20.822 Contact with and (suspected) exposure to COVID-19; Z79.899 Other long term (current) drug therapy; G47.33 Obstructive sleep apnea (adult) (pediatric); N40.0 Benign prostatic hyperplasia without lower urinary tract symptoms; M51.37 Other intervertebral disc degeneration, lumbosacral region; M51.17 Intervertebral disc disorders with radiculopathy, lumbosacral region; F32.A Depression, unspecified; F43.20 Adjustment disorder, unspecified; N52.9 Male erectile dysfunction, unspecified; R91.8 Other nonspecific abnormal finding of lung field

== ENCOUNTER → 2023-01-21 | Outpatient (REF) | payer OTHER ==
[~2023-01-21] MED LIST changes: +AMLO1TAB24 PO; +ASPI81CH8 PO; +FLOM0.4C39 PO; +GABA-1171 PO; +KEPP1TAB PO; +LISI20TA33 PO; +VITA100093 PO; +VITMTA PO
[2023-01-21 13:11] LABS: HEMOGLOBIN 13.9 g/dl (13.5-17.5); MEAN CORPUSCULAR HGB CONC 31.6 g/dl (32.0-36.5); MEAN CORPUSCULAR VOLUME 88.7 fl (80.0-96.0); PLATELET COUNT, AUTOMATED 252 10^3/uL (150-450); RED BLOOD COUNT 4.96 10^6/uL (4.30-6.10); WHITE BLOOD COUNT 6.2 10^3/uL (4.0-10.0)
[2023-01-21 13:47] LABS: ALBUMIN 3.3 G/DL (3.2-5.2); ALKALINE PHOSPHATASE 80 U/L (46-116); ALT/SGPT 14 U/L (7.0-40); AST/SGOT 19 U/L (<34); BILIRUBIN,TOTAL 0.5 MG/DL (0.3-1.2); BLOOD UREA NITROGEN 13 MG/DL (9-23); CALCIUM LEVEL 9.2 MG/DL (8.3-10.6); CARBON DIOXIDE LEVEL 31 MMOL/L (20-31); CHLORIDE LEVEL 106 MMOL/L (98-107); CHOLESTEROL LEVEL 182 MG/DL (<200); CHOLESTEROL RISK RATIO 2.89 (<5); CREATININE FOR GFR 0.87 MG/DL (0.70-1.30); GLOMERULAR FILTRATION RATE > 60.0 (>49); GLUCOSE, FASTING 93 MG/DL (74-106); HDL CHOLESTEROL 62.9 MG/DL (>40); LDL CHOLESTEROL 93.7 MG/DL (<100); NON-HDL-C 119.1 MG/DL; POTASSIUM SERUM 4.3 MMOL/L (3.5-5.1); SODIUM LEVEL 142 MMOL/L (136-145); TOTAL PROTEIN 6.1 G/DL (5.7-8.2); TRIGLYCERIDES LEVEL 127 MG/DL (<150)
[2023-01-21 13:48] LABS: FREE T4 1.13 NG/DL (0.89-1.76); THYROID STIMULATING HORMONE 1.527 uIU/ML (0.55-4.78)
[2023-01-21 13:54] LABS: HEMOGLOBIN A1c 5.6 % (4.0-6.0)
== END ==
LOC: M SFHCADAM 07:59
PROVIDERS: ATTEND Family Medicine
DX: I10 Essential (primary) hypertension (principal); F41.8 Other specified anxiety disorders; F52.21 Male erectile disorder; E78.5 Hyperlipidemia, unspecified; Z13.1 Encounter for screening for diabetes mellitus; Z12.5 Encounter for screening for malignant neoplasm of prostate

== ENCOUNTER → 2023-06-09 | Outpatient (CLI) | payer MEDICARE | LOC: M SLEEP HO 10:32 | PROVIDERS: ATTEND Internal Medicine Pulmonary Disease | DX: G47.33 Obstructive sleep apnea (adult) (pediatric) (principal) ==

== ENCOUNTER → 2023-07-14 | Outpatient (CLI) | payer MEDICARE | LOC: M SLEEP 20:00 | PROVIDERS: ATTEND Internal Medicine Pulmonary Disease | DX: G47.33 Obstructive sleep apnea (adult) (pediatric) (principal); G47.61 Periodic limb movement disorder ==

== ENCOUNTER → 2023-08-05 | Outpatient (REF) | payer OTHER ==
[2023-08-05 12:41] LABS: HEMATOCRIT 43.6 % (42.0-52.0); HEMOGLOBIN 14.1 g/dl (13.5-17.5); MEAN CORPUSCULAR HEMOGLOBIN 28.3 pg (27.0-33.0); MEAN CORPUSCULAR HGB CONC 32.3 g/dl (32.0-36.5); MEAN CORPUSCULAR VOLUME 87.6 fl (80.0-96.0); PLATELET COUNT, AUTOMATED 221 10^3/uL (150-450); RED BLOOD COUNT 4.98 10^6/uL (4.30-6.10); WHITE BLOOD COUNT 5.1 10^3/uL (4.0-10.0)
[2023-08-05 13:12] LABS: FREE T4 1.21 NG/DL (0.89-1.76)
[2023-08-05 13:13] LABS: ALBUMIN 3.6 G/DL (3.2-5.2); ALKALINE PHOSPHATASE 74 U/L (46-116); ALT/SGPT 13 U/L (7.0-40); AST/SGOT 20 U/L (<34); BILIRUBIN,TOTAL 0.5 MG/DL (0.3-1.2); BLOOD UREA NITROGEN 17 MG/DL (9-23); CALCIUM LEVEL 8.9 MG/DL (8.3-10.6); CARBON DIOXIDE LEVEL 26 MMOL/L (20-31); CHLORIDE LEVEL 107 MMOL/L (98-107); CHOLESTEROL LEVEL 178 MG/DL (<200); CHOLESTEROL RISK RATIO 2.37 (<5); CREATININE FOR GFR 0.94 MG/DL (0.70-1.30); GLOMERULAR FILTRATION RATE > 60.0 (>49); GLUCOSE, FASTING 91 MG/DL (74-106); HDL CHOLESTEROL 74.8 MG/DL (>40); LDL CHOLESTEROL 86.8 MG/DL (<100); NON-HDL-C 103.2 MG/DL; SODIUM LEVEL 140 MMOL/L (136-145); TOTAL PROTEIN 6.4 G/DL (5.7-8.2); TRIGLYCERIDES LEVEL 82 MG/DL (<150)
[2023-08-06 23:07] LABS: PSA TOTAL 3.3 ng/mL (0.0-4.0)
== END ==
LOC: M SFHCADAM 11:20
PROVIDERS: ATTEND Family Medicine
DX: I10 Essential (primary) hypertension (principal)

== ENCOUNTER → 2024-02-02 | Outpatient (REF) | payer MEDICARE | LOC: M SFHCADAM 08:42 | PROVIDERS: ATTEND Family Medicine | DX: M19.90 Unspecified osteoarthritis, unspecified site (principal) ==

== ENCOUNTER → 2024-06-21 | Outpatient (REF) | payer MEDICARE ==
[~2024-06-21] MED LIST changes: +FLUO-365 PO; -FLUO20CA22 PO
[2024-06-21 15:01] LABS: HEMATOCRIT 37.4 % (42.0-52.0); HEMOGLOBIN 10.8 g/dl (13.5-17.5); MEAN CORPUSCULAR HGB CONC 28.9 g/dl (32.0-36.5); MEAN CORPUSCULAR VOLUME 76.3 fl (80.0-96.0); PLATELET COUNT, AUTOMATED 296 10^3/uL (150-450); WHITE BLOOD COUNT 4.9 10^3/uL (4.0-10.0)
[2024-06-21 15:06] LABS: IRON (FE) 17 UG/DL (65-175); PERCENT SATURATION 4.4 % (19.7-50.0); TOTAL IRON BINDING CAPACITY 390 UG/DL (250-425)
[2024-06-21 15:07] LABS: ALBUMIN 3.5 G/DL (3.2-5.2); ALKALINE PHOSPHATASE 66 U/L (46-116); ALT/SGPT 17 U/L (7.0-40); AST/SGOT 17 U/L (<34); BILIRUBIN,TOTAL 0.4 MG/DL (0.3-1.2); BLOOD UREA NITROGEN 16 MG/DL (9-23); CALCIUM LEVEL 9.2 MG/DL (8.3-10.6); CARBON DIOXIDE LEVEL 31 MMOL/L (20-31); CHLORIDE LEVEL 109 MMOL/L (98-107); CHOLESTEROL LEVEL 187 MG/DL (<200); CHOLESTEROL RISK RATIO 2.53 (<5); CREATININE FOR GFR 1.06 MG/DL (0.70-1.30); GLOMERULAR FILTRATION RATE > 60.0 (>49); GLUCOSE, FASTING 94 MG/DL (74-106); HDL CHOLESTEROL 73.8 MG/DL (>40); LDL CHOLESTEROL 105.2 MG/DL (<100); NON-HDL-C 113.2 MG/DL; POTASSIUM SERUM 4.9 MMOL/L (3.5-5.1); PSA SCREENING 2.44 NG/ML (< 4.00); SODIUM LEVEL 141 MMOL/L (136-145); TOTAL PROTEIN 6.4 G/DL (5.7-8.2); TRIGLYCERIDES LEVEL 40 MG/DL (<150)
[2024-06-21 15:11] LABS: FERRITIN 3.3 NG/ML (10.5-307.3); FOLATE > 24.0 NG/ML (>5.4); VITAMIN B12 LEVEL 524 PG/ML (211-911)
[2024-06-21 16:30] LABS: HEMOGLOBIN A1c 5.5 % (4.0-6.0)
== END ==
LOC: M SFHCADAM 08:52
PROVIDERS: ATTEND Family Medicine
DX: Z13.0 Encounter for screening for diseases of the blood and blood-forming organs and certain disorders involving the immune mechanism (principal); M19.90 Unspecified osteoarthritis, unspecified site; I10 Essential (primary) hypertension; E78.5 Hyperlipidemia, unspecified; Z13.1 Encounter for screening for diabetes mellitus; Z12.5 Encounter for screening for malignant neoplasm of prostate; E61.1 Iron deficiency

== ENCOUNTER 2024-08-23 20:09 | Inpatient (IN) | payer MEDICARE ==
[~2024-08-23] VITALS: Ht 175.3 cm; Wt 90.1 kg
[~2024-08-23 20:09] MED LIST changes: +CVS1CHW13 PO; +CYAN500T14 PO; +IRON27TA2 PO; +LISI40TA4 PO; +SILD100T PO; +THERTAB52 PO
[2024-08-23 21:18] LABS: BASO # 0.1 10^3/uL (0.0-0.2); BASO % 0.7 % (0.0-1.0); EOS # 0.3 10^3/uL (0.0-0.5); EOS % 4.9 % (0.0-3.0); HEMATOCRIT 42.3 % (42.0-52.0); HEMOGLOBIN 13.5 g/dl (13.5-17.5); LYMPH # 1.3 10^3/uL (1.5-5.0); LYMPH % 18.9 % (24.0-44.0); MEAN CORPUSCULAR HEMOGLOBIN 26.7 pg (27.0-33.0); MEAN CORPUSCULAR HGB CONC 31.9 g/dl (32.0-36.5); MEAN CORPUSCULAR VOLUME 83.6 fl (80.0-96.0); MONO # 0.6 10^3/uL (0.0-0.8); NEUTROPHILS # 4.7 10^3/uL (1.5-8.5); NEUTROPHILS % 67.2 % (36.0-66.0); PLATELET COUNT, AUTOMATED 203 10^3/uL (150-450); RED BLOOD COUNT 5.06 10^6/uL (4.30-6.10)
[2024-08-23 21:41] LABS: THYROID STIMULATING HORMONE 2.772 uIU/ML (0.55-4.78)
[2024-08-23 21:44] LABS: BLOOD UREA NITROGEN 12 MG/DL (9-23); CALCIUM LEVEL 8.8 MG/DL (8.3-10.6); CARBON DIOXIDE LEVEL 28 MMOL/L (20-31); CHLORIDE LEVEL 108 MMOL/L (98-107); CREATININE FOR GFR 0.82 MG/DL (0.70-1.30); GLOMERULAR FILTRATION RATE > 60.0 (>49); GLUCOSE, FASTING 108 MG/DL (74-106); POTASSIUM SERUM 5.2 MMOL/L (3.5-5.1); SODIUM LEVEL 141 MMOL/L (136-145)
[2024-08-23 22:47] LABS: CK-MB VALUE MASS < 1.0 NG/ML (<3.6); CPK CREATINE PHOSPHOKINASE 93 U/L (46-171); MB/CK RELATIVE INDEX 1.07 (< OR =4)
[2024-08-24] MEDS ORDERED: ASPI81TA26 PO (02:39)
[2024-08-24] MEDS ORDERED: FERR32TA PO (02:39)
[2024-08-24] MEDS ORDERED: LISI20TA33 PO (02:39)
[2024-08-24] MEDS ORDERED: HOME MED LIST COMPLETE! XX SCH (02:40)
[2024-08-24] MEDS ORDERED: ACETAMINOPHEN 325 MG TAB PO PRN (03:00)
[2024-08-24] MEDS ORDERED: MOM 30ML SUSPENSION UDC PO PRN (03:00)
[2024-08-24] MEDS ORDERED: MAALOX 30 ML SUSP *UDC PO PRN (03:00)
[2024-08-24] MEDS: VITAMIN D 1,000 INTERNATIONAL UNITS TABLET PO SCH (04:01)
[2024-08-24] MEDS: ASPIRIN 81MG ENTERIC TABLET PO SCH (04:02)
[2024-08-24] MEDS: TAMSULOSIN 0.4 MG CAP PO SCH (04:02)
[2024-08-24] MEDS: FERROUS GLUCONATE 324 MG TAB PO SCH (04:02)
[2024-08-24] MEDS: FLUoxetine 20MG CAP PO SCH (04:02)
[2024-08-24 04:18] LABS: HEMATOCRIT 43.4 % (42.0-52.0); HEMOGLOBIN 14.1 g/dl (13.5-17.5); MEAN CORPUSCULAR HEMOGLOBIN 27.3 pg (27.0-33.0); MEAN CORPUSCULAR HGB CONC 32.5 g/dl (32.0-36.5); MEAN CORPUSCULAR VOLUME 84.1 fl (80.0-96.0); PLATELET COUNT, AUTOMATED 220 10^3/uL (150-450); RED BLOOD COUNT 5.16 10^6/uL (4.30-6.10); WHITE BLOOD COUNT 6.3 10^3/uL (4.0-10.0)
[2024-08-24 04:42] LABS: ALBUMIN 3.1 G/DL (3.2-5.2); ALKALINE PHOSPHATASE 72 U/L (46-116); ALT/SGPT 14 U/L (7.0-40); AST/SGOT 14 U/L (<34); BILIRUBIN,DIRECT < 0.1 MG/DL (<0.4); BILIRUBIN,TOTAL 0.3 MG/DL (0.3-1.2); BLOOD UREA NITROGEN 10 MG/DL (9-23); CALCIUM LEVEL 9.1 MG/DL (8.3-10.6); CARBON DIOXIDE LEVEL 30 MMOL/L (20-31); CHLORIDE LEVEL 111 MMOL/L (98-107); CHOLESTEROL LEVEL 183 MG/DL (<200); CHOLESTEROL RISK RATIO 2.66 (<5); CREATININE FOR GFR 0.96 MG/DL (0.70-1.30); GLOMERULAR FILTRATION RATE > 60.0 (>49); GLUCOSE, FASTING 91 MG/DL (74-106); HDL CHOLESTEROL 68.6 MG/DL (>40); LDL CHOLESTEROL 88.4 MG/DL (<100); NON-HDL-C 114.4 MG/DL; POTASSIUM SERUM 4.3 MMOL/L (3.5-5.1); SODIUM LEVEL 146 MMOL/L (136-145); TOTAL PROTEIN 6.1 G/DL (5.7-8.2); TRIGLYCERIDES LEVEL 130 MG/DL (<150)
[2024-08-24 06:19] LABS: BASO # 0.1 10^3/uL (0.0-0.2); BASO % 0.8 % (0.0-1.0); EOS # 0.3 10^3/uL (0.0-0.5); HEMATOCRIT 43.9 % (42.0-52.0); HEMOGLOBIN 14.1 g/dl (13.5-17.5); LYMPH # 1.4 10^3/uL (1.5-5.0); LYMPH % 22.4 % (24.0-44.0); MEAN CORPUSCULAR HEMOGLOBIN 26.8 pg (27.0-33.0); MEAN CORPUSCULAR HGB CONC 32.1 g/dl (32.0-36.5); MEAN CORPUSCULAR VOLUME 83.5 fl (80.0-96.0); MONO # 0.7 10^3/uL (0.0-0.8); MONO % 10.8 % (2.0-8.0); NEUTROPHILS # 3.8 10^3/uL (1.5-8.5); NEUTROPHILS % 61.7 % (36.0-66.0); PLATELET COUNT, AUTOMATED 224 10^3/uL (150-450); RED BLOOD COUNT 5.26 10^6/uL (4.30-6.10); WHITE BLOOD COUNT 6.2 10^3/uL (4.0-10.0)
[2024-08-24] MEDS: MULTIVITAMINS/MINERALS THERAP 1 TAB PO SCH (08:21)
[2024-08-24] MEDS: CALCIUM CARBONATE 500 MG CHEW U/D PO SCH (08:21)
[2024-08-24] MEDS: CYANOCOBALAMIN 500 MCG TAB PO SCH (08:22)
[2024-08-24] MEDS: ENOXAPARIN 40MG/0.4ML SYRINGE (J1650 PER 10MG) SC SCH (08:23)
[2024-08-24] MEDS ORDERED: CALCIUM ACETATE 667MG GELCAP PO SCH (09:00)
[2024-08-24] MEDS ORDERED: amLODIPine 5 MG TAB PO SCH ×2 (09:00→09:40)
[2024-08-24] MEDS: amLODIPine 5 MG TAB PO ONE (14:28)
[2024-08-24 15:11] VITALS: BP 156/73; TEMP 98.5; O2SAT 96
[2024-08-24 16:20] VITALS: BP 149/62
[2024-08-24 16:22] VITALS: BP 147/76
[2024-08-24 16:23] VITALS: BP 144/72
[2024-08-24 20:42] VITALS: BP 143/67; TEMP 98.1; O2SAT 98
[2024-08-24 20:45] VITALS: BP 143/67
[2024-08-25] VITALS: BP 153/77; TEMP 98.2; O2SAT 97
[2024-08-25 00:08] VITALS: BP_SYST 137; BP_SYST 142; BP_SYST 144; BP_DIAS 70; BP_DIAS 71; BP_DIAS 74
[2024-08-25 04:24] VITALS: BP 154/73; TEMP 98.2; O2SAT 96
[2024-08-25 05:41] LABS: HEMATOCRIT 40.3 % (42.0-52.0); HEMOGLOBIN 12.9 g/dl (13.5-17.5); MEAN CORPUSCULAR VOLUME 84.5 fl (80.0-96.0); PLATELET COUNT, AUTOMATED 196 10^3/uL (150-450); RED BLOOD COUNT 4.77 10^6/uL (4.30-6.10); WHITE BLOOD COUNT 6.7 10^3/uL (4.0-10.0)
[2024-08-25 08:32] VITALS: BP 142/73; TEMP 97.5; O2SAT 95
[2024-08-25 08:45] VITALS: BP_SYST 132; BP_SYST 135; BP_DIAS 70; BP_DIAS 72; BP_DIAS 73
[2024-08-25] MEDS: FLUBLOK(EGGFREE) TRIVAL(24-25) VACCINE PF 0.5ML SYRINGE 18YRS & OLDER IM.IMMUN ONE (14:31)
[2024-08-25] MEDS ORDERED: amLODIPine 5 MG TAB PO SCH (21:00)
[2024-08-27 01:08] LABS: LYME TOTAL ANTIBODY CIA <= 0.90 Index (<=0.90)
== END 2024-08-25 14:29 | disposition home or self-care (01) | DRG 309 ==
LOC: M ED 20:09 → M ED INP 08-24 02:58 → M PCU 08-24 15:10
PROVIDERS: ADMIT Internal Medicine; ATTEND Internal Medicine
PROC: B246ZZZ Ultrasonography of Right and Left Heart (ICD-10-PCS; principal; 2024-08-24)
DX: R00.1 Bradycardia, unspecified (principal); E87.0 Hyperosmolality and hypernatremia; I10 Essential (primary) hypertension; F32.A Depression, unspecified; F41.9 Anxiety disorder, unspecified; M19.90 Unspecified osteoarthritis, unspecified site; R55 Syncope and collapse; E87.5 Hyperkalemia; N40.0 Benign prostatic hyperplasia without lower urinary tract symptoms; G47.33 Obstructive sleep apnea (adult) (pediatric); Z98.84 Bariatric surgery status; Z79.82 Long term (current) use of aspirin; Z79.4 Long term (current) use of insulin; Z79.899 Other long term (current) drug therapy; W19.XXXA Unspecified fall, initial encounter; Y92.009 Unspecified place in unspecified non-institutional (private) residence as the place of occurrence of the external cause

== ENCOUNTER → 2024-08-25 | Outpatient (CLI) | payer MEDICARE ==
[~2024-08-25] MED LIST changes: +ASPI81TA26 PO; +FERR32TA PO
== END ==
LOC: M EKG 14:36
PROVIDERS: ATTEND Student in an Organized Health Care Education/Training Program
DX: R55 Syncope and collapse (principal)

== ENCOUNTER → 2024-09-01 | Outpatient (CLI) | payer MEDICARE ==
[2024-09-01 13:07] LABS: BASO # 0.1 10^3/uL (0.0-0.2); BASO % 0.8 % (0.0-1.0); EOS # 0.2 10^3/uL (0.0-0.5); EOS % 3.8 % (0.0-3.0); HEMOGLOBIN 14.5 g/dl (13.5-17.5); LYMPH # 1.1 10^3/uL (1.5-5.0); LYMPH % 16.7 % (24.0-44.0); MEAN CORPUSCULAR HEMOGLOBIN 27.4 pg (27.0-33.0); MEAN CORPUSCULAR HGB CONC 31.5 g/dl (32.0-36.5); MONO # 0.8 10^3/uL (0.0-0.8); MONO % 11.8 % (2.0-8.0); NEUTROPHILS # 4.2 10^3/uL (1.5-8.5); NEUTROPHILS % 66.6 % (36.0-66.0); PLATELET COUNT, AUTOMATED 249 10^3/uL (150-450); RED BLOOD COUNT 5.29 10^6/uL (4.30-6.10); WHITE BLOOD COUNT 6.4 10^3/uL (4.0-10.0)
[2024-09-01 13:15] LABS: BLOOD UREA NITROGEN 14 MG/DL (9-23); CALCIUM LEVEL 9.7 MG/DL (8.3-10.6); CARBON DIOXIDE LEVEL 30 MMOL/L (20-31); CHLORIDE LEVEL 109 MMOL/L (98-107); CREATININE FOR GFR 0.96 MG/DL (0.70-1.30); GLOMERULAR FILTRATION RATE > 60.0 (>49); GLUCOSE, FASTING 94 MG/DL (74-106); POTASSIUM SERUM 4.5 MMOL/L (3.5-5.1); SODIUM LEVEL 143 MMOL/L (136-145)
== END ==
LOC: M PLALAB 10:32
PROVIDERS: ATTEND Physician Assistant
DX: E87.5 Hyperkalemia (principal)

== ENCOUNTER → 2024-10-19 | Outpatient (REF) | payer MEDICARE ==
[2024-10-19 14:10] LABS: HEMATOCRIT 44.8 % (42.0-52.0); HEMOGLOBIN 15.2 g/dl (13.5-17.5); MEAN CORPUSCULAR HEMOGLOBIN 29.9 pg (27.0-33.0); MEAN CORPUSCULAR HGB CONC 33.9 g/dl (32.0-36.5); MEAN CORPUSCULAR VOLUME 88.2 fl (80.0-96.0); PLATELET COUNT, AUTOMATED 217 10^3/uL (150-450); RED BLOOD COUNT 5.08 10^6/uL (4.30-6.10); WHITE BLOOD COUNT 4.4 10^3/uL (4.0-10.0)
[2024-10-19 14:33] LABS: PERCENT SATURATION 32.9 % (19.7-50.0)
[2024-10-19 14:34] LABS: FERRITIN 10.7 NG/ML (10.5-307.3)
== END ==
LOC: M SFHCADAM 09:44
PROVIDERS: ATTEND Family Medicine
DX: D53.9 Nutritional anemia, unspecified (principal)

== ENCOUNTER 2025-02-02 07:12 | Day surgery (SDC) | payer MEDICARE ==
[~2025-02-02] VITALS: Ht 175.3 cm; Wt 91.7 kg
[~2025-02-02 07:12] MED LIST changes: +ACET650T61 PO; +D3 S1CAP3 PO; +FIBECHW4 PO
[2025-02-02 09:50] VITALS: BP 135/75; TEMP 97.7; O2SAT 97
== END 2025-02-02 09:57 | disposition home or self-care (01) ==
LOC: M OPP 07:12
PROVIDERS: ATTEND Surgery
DX: K64.0 First degree hemorrhoids (principal); D50.9 Iron deficiency anemia, unspecified; K44.9 Diaphragmatic hernia without obstruction or gangrene; K29.70 Gastritis, unspecified, without bleeding; G47.30 Sleep apnea, unspecified; Z79.82 Long term (current) use of aspirin; Z79.899 Other long term (current) drug therapy; Z98.84 Bariatric surgery status

== ENCOUNTER → 2025-02-28 | Outpatient (REF) | payer MEDICARE ==
[2025-02-28 18:48] LABS: HEMATOCRIT 45.3 % (42.0-52.0); HEMOGLOBIN 15.4 g/dl (13.5-17.5); MEAN CORPUSCULAR HEMOGLOBIN 31.3 pg (27.0-33.0); MEAN CORPUSCULAR VOLUME 92.1 fl (80.0-96.0); PLATELET COUNT, AUTOMATED 239 10^3/uL (150-450); RED BLOOD COUNT 4.92 10^6/uL (4.30-6.10); WHITE BLOOD COUNT 7.9 10^3/uL (4.0-10.0)
[2025-02-28 19:27] LABS: ALBUMIN 3.5 G/DL (3.2-5.2); BILIRUBIN,TOTAL 0.4 MG/DL (0.3-1.2); CALCIUM LEVEL 9.4 MG/DL (8.3-10.6); CHOLESTEROL RISK RATIO 2.41 (<5); CREATININE FOR GFR 0.98 MG/DL (0.70-1.30); HDL CHOLESTEROL 73.7 MG/DL (>40); LDL CHOLESTEROL 83.1 MG/DL (<100); NON-HDL-C 104.3 MG/DL; POTASSIUM SERUM 4.5 MMOL/L (3.5-5.1); TOTAL PROTEIN 6.5 G/DL (5.7-8.2)
[2025-02-28 19:30] LABS: FERRITIN 10.6 NG/ML (10.5-307.3); THYROID STIMULATING HORMONE 0.907 uIU/ML (0.55-4.78)
[2025-02-28 19:32] LABS: FREE T4 1.33 NG/DL (0.89-1.76)
== END ==
LOC: M SFHCADAM 14:10
PROVIDERS: ATTEND Family Medicine
DX: R55 Syncope and collapse (principal); D53.9 Nutritional anemia, unspecified; I10 Essential (primary) hypertension; F41.1 Generalized anxiety disorder; E78.5 Hyperlipidemia, unspecified

== ENCOUNTER → 2025-07-05 | Outpatient (REF) | payer MEDICARE ==
[~2025-07-05] MED LIST changes: -FLOM0.4C39 PO; +LISI40TA10 PO; -LISI40TA4 PO; +TAMS-18 PO
[2025-07-05 14:07] LABS: PLATELET COUNT, AUTOMATED 227 10^3/uL (150-450)
[2025-07-05 14:10] LABS: APPEARANCE, URINE CLEAR (CLEAR); BACTERIA, URINE AUTO NEGATIVE (NEGATIVE); BILIRUBIN, URINE AUTO NEGATIVE (NEGATIVE); BLOOD, URINE BLOOD NEGATIVE (NEGATIVE); GLUCOSE, URINE (UA) AUTO NEGATIVE (NEGATIVE); KETONE, URINE AUTO NEGATIVE (NEGATIVE); LEUKOCYTE ESTERASE, URINE AUTO NEGATIVE (NEGATIVE); MUCUS, URINE SMALL (NEGATIVE); NITRITE, URINE AUTO NEGATIVE (NEGATIVE); PROTEIN, URINE AUTO NEGATIVE (NEGATIVE); RBC, URINE AUTO 0 /HPF (0-3); SPECIFIC GRAVITY URINE AUTO 1.017 (1.002-1.035); SQUAMOUS EPITHELIAL CELL UR AU 0 /HPF (0-6); UROBILINOGEN, URINE AUTO 0.2 mg/dL (0.0-2.0); WBC, URINE AUTO 0 /HPF (0-3)
[2025-07-05 14:26] LABS: C REACTIVE PROTEIN QUANTITATIV < 0.50 MG/DL (<1.0)
[2025-07-05 14:28] LABS: CALCIUM LEVEL 10.8 MG/DL (8.3-10.6); CARBON DIOXIDE LEVEL 29 MMOL/L (20-31); CHLORIDE LEVEL 103 MMOL/L (98-107); CREATININE FOR GFR 0.96 MG/DL (0.70-1.30); GLOMERULAR FILTRATION RATE 86.6 (>49); POTASSIUM SERUM 4.3 MMOL/L (3.5-5.1); PSA SCREENING 2.56 NG/ML (< 4.00); SODIUM LEVEL 144 MMOL/L (136-145)
== END ==
LOC: M SFHCADAM 09:30
PROVIDERS: ATTEND Physician Assistant
DX: N40.1 Benign prostatic hyperplasia with lower urinary tract symptoms (principal); Z12.5 Encounter for screening for malignant neoplasm of prostate; Z79.899 Other long term (current) drug therapy
CPT/HCPCS: 80048; 81001; 85027; 86140; 87086; G0103

== ENCOUNTER 2025-08-16 15:05 | Emergency (ER) | payer MEDICARE ==
[~2025-08-16] VITALS: Ht 175.3 cm; Wt 99.4 kg
[2025-08-16] MEDS ORDERED: CLON0.5T2 (15:25)
[2025-08-16 15:41] LABS: BASO # 0.0 10^3/uL (0.0-0.2); BASO % 0.7 % (0.0-1.0); EOS # 0.1 10^3/uL (0.0-0.5); EOS % 1.8 % (0.0-3.0); LYMPH # 0.6 10^3/uL (1.5-5.0); LYMPH % 11.2 % (24.0-44.0); MONO # 0.3 10^3/uL (0.0-0.8); MONO % 4.5 % (2.0-8.0); NEUTROPHILS # 4.5 10^3/uL (1.5-8.5); NEUTROPHILS % 81.4 % (36.0-66.0); PLATELET COUNT, AUTOMATED 182 10^3/uL (150-450)
[2025-08-16 16:12] LABS: SALICYLATE LEVEL < 3.0 MG/DL (<30)
[2025-08-16 16:14] LABS: ETHYL ALCOHOL (ETHANOL) 0.202 % (0.000-0.010)
[2025-08-16 16:15] LABS: ALT/SGPT 16 U/L (7.0-40); AST/SGOT 26 U/L (<34); CALCIUM LEVEL 8.1 MG/DL (8.3-10.6); CARBON DIOXIDE LEVEL 22 MMOL/L (20-31); CHLORIDE LEVEL 107 MMOL/L (98-107); CREATININE FOR GFR 0.88 MG/DL (0.70-1.30); GLOMERULAR FILTRATION RATE > 90.0 (>49); POTASSIUM SERUM 3.6 MMOL/L (3.5-5.1); SODIUM LEVEL 142 MMOL/L (136-145)
[2025-08-16 18:02] LABS: METHADONE URINE NEGATIVE (NEGATIVE); OPIATES URINE NEGATIVE (NEGATIVE)
[2025-08-16 18:03] LABS: AMPHETAMINES LEVEL URINE NEGATIVE (NEGATIVE); BENZODIAZEPINES URINE NEGATIVE (NEGATIVE); CANNABINOIDS URINE NEGATIVE (NEGATIVE); COCAINE METABOLITE URINE NEGATIVE (NEGATIVE); PHENCYCLIDINE URINE NEGATIVE (NEGATIVE)
[2025-08-16 18:04] LABS: BARBITURATES URINE NEGATIVE (NEGATIVE)
[2025-08-16 18:47] VITALS: BP 132/68; TEMP 98.5; O2SAT 98
== END 2025-08-16 18:54 | disposition home or self-care (01) ==
LOC: EDBD 15:05 → M ED 15:05
DX: F10.129 Alcohol abuse with intoxication, unspecified (principal); G89.4 Chronic pain syndrome; I10 Essential (primary) hypertension; G47.30 Sleep apnea, unspecified

== ENCOUNTER → 2025-08-23 | Outpatient (REF) | payer MEDICARE ==
[~2025-08-23] MED LIST changes: +CLON0.5T2
[2025-08-23 18:12] LABS: ALT/SGPT 14.0 U/L (7.0-40); AST/SGOT 16.0 U/L (<34); CALCIUM LEVEL 9.2 MG/DL (8.3-10.6); CARBON DIOXIDE LEVEL 30.0 MMOL/L (20-31); CHLORIDE LEVEL 106.0 MMOL/L (98-107); CREATININE FOR GFR 0.98 MG/DL (0.70-1.30); GLOMERULAR FILTRATION RATE 84.5 (>49); POTASSIUM SERUM 3.7 MMOL/L (3.5-5.1); SODIUM LEVEL 145.0 MMOL/L (136-145)
[2025-08-23 18:20] LABS: PLATELET COUNT, AUTOMATED 221 10^3/uL (150-450)
[2025-08-23 18:33] LABS: ESTIMATED AVERAGE GLUCOSE 108.0 MG/DL (60-110)
== END ==
LOC: M SFHCADAM 11:24
PROVIDERS: ATTEND Family Medicine
DX: D53.9 Nutritional anemia, unspecified (principal); I10 Essential (primary) hypertension; Z13.1 Encounter for screening for diabetes mellitus

== ENCOUNTER → 2025-08-29 | Outpatient (CLI) | payer MEDICARE | LOC: M ADAMS 09:50 | PROVIDERS: ATTEND Family Medicine | DX: M51.362 Other intervertebral disc degeneration, lumbar region with discogenic back pain and lower extremity pain (principal) ==